=== PATIENT | male | born 1935 | race Caucasian/White ===

== ENCOUNTER 2022-09-03 13:30 | Outpatient (RCR) | payer OTHER, SELFPAY ==
--- NOTE | 2022-05-05 16:23 | ST.OP.ACL ---
Visit Care Team Role Provider Type Latrell Acosta MD Attending Provider Non-Staff Family Provider Primary Care Provider Referring Provider Specialty: Family Practice Address: [address] [place] [address], [id number] Email: Adult Cognitive Linguistic Evaluation METAL FILER Adult Cognitive Linguistic Eval Start: 05/05/22 15:20 Freq: Status: Active Protocol: Document 05/05/22 15:20 ZS (Rec: 05/05/22 15:33 ZS [id number]) Adult Cognitive Linguistic Evaluation Session Time Visit Start Time 14:30 Visit Stop Time 15:20 Total Visit Minutes 50 Visit Information Visit Number Initial Evaluation Plan of Care Dates 05/05/2022 - 08/21/2022 Insurance Information [place] Referral Referring Provider Dr. Acosta Reason for Referral Speech difficulties post stroke Setting Assessment Location Outpatient Care Visit Type Note Type Initial evaluation Next Note Type Next Note Type Treatment Note Patient Information Identification Type Name Patient History Emmanuel is an 86-year-old male who had a stroke in February 2022 and was referred for speech therapy due to expressive communication deficits. reported Emmanuel was unable to speak immediately following stroke, though did not have difficulty with swallowing or cognition. She added Emmanuel has demonstrated significant improvement each day following stroke and is now able to communicate basic wants and needs, albeit slowly due to articulation errors. Emmanuel reported no word finding difficulty, stating all communication deficits are related to producing/ articulating words. noted difficulty with particular sound combinations, primarily s-blends. Language(s) Spoken in the Home Persian Occupation Status Retired researcher at [employer] Hearing Hearing Level Impaired Vision Vision Status Not Impaired Previous Therapy Previous Speech-Language Therapy Yes History of Therapy In hospital following stroke, provided exercises and support with communication. Subjective Patient Report Emmanuel arrived on time accompanied by his , who was present for the session. Emmanuel reported he often spells words he is having difficulty producing or with slow his rate of speech to articulate the word more precisely. Mental Status Alert,Responsive,Cooperative Assessment Oral Motor Examination Completed Yes Results Structures were symmetrical at rest and in motion. Tongue, lip, and jaw strength and ROM were WNL. Structure and function of oral mechanism appears WNL for the purposes of speech and swallowing. Speech was clear, though articulation was errored. Pt exhibited errors on 80-90% of words produced, though corrected most of these independently by spelling words and then saying them again at a slower rate. Emmanuel and reported this is consistent with communication at home, though improvements are noted every day and even over the course of a day. Informal Assessment Receptive Language Normal Yes Expressive Language Normal Yes: Language normal, articulation is severely impaired Pragmatic Language Normal Yes Speech Normal No Speech Impairment(s) Imprecise articulation Cognition Normal Yes Formal Assessment Results Assessed speech sounds using informal assessments of automatic speech, filling in the blank, and opposites. Pt exhibited difficulty with singing Happy Birthday as well as saying b, w, and q in the alphabet (d said instead of b and articulation errors in w and q). Filling in words and opposites were 100% accurate ( 5/5 trials). The Armas Fristoe Test of Articulation ( GFTA-2) was used as informal assessment tool to assess patterns in articulation errors. No clear patterns emerged and exhibited successful self-correction on 60% of errored productions and he attempted self-correction on 100% of errors. Some errors appear visually similar (e.g. , /m/ for /w/ or /d/ for /b/) while others were more typical fronting errors (e.g., /d/ for /g/). Length of word did not appear to impact production, as soup, super, and superman were all produced accurately and errors were just as likely to appear on longer words as they were on shorter ones. Errors noted on vowel production, though no patterns appeared here either . Pt demonstrated excellent independent use of strategies for improved articulation including spelling words to aid in his production as well as slowing rate of speech and focusing on precise articulation. Additionally, he would use a different word with the same sound to approximate position of sound (e.g., used accurate production of Mendez to aid in production of /w/ in wagon). Recommend speech therapy to increase intelligibility and expressive communication for the purposes of communicating wants and needs, especially in emergency situations. Findings/Results Language Function Within normal limits Cognitive Function Within normal limits Cognitive Communication Deficits Self-awareness of Cognitive- Situational awareness ( Communication Deficits recognition of problem in context;in real time) Prognosis Prognosis Good Based on Cognitive status,Family support,Duration of symptoms/ severity,Time since onset Plan of Care Speech-Language Treatment Yes Frequency 1x per week Duration 45 minutes Patient/Caregiver Education Described results of evaluation,Patient expressed understanding of evaluation, Patient expressed agreement with goals and treatment plans ,Family/caregivers expressed understanding of evaluation, Family/caregivers expressed agreement with goals and treatment plan,Patient requires further education/ training,Family/caregivers require further education/ training Short Term Goals 1. Emmanuel will produce automatic speech with 100% accuracy without requiring revisions across 2 sessions. 2. Emmanuel will perform exercises to increase coordination of articulator and rate of speech for improved intelligibility and communicative capabilities. Maint Mechanic Goals Emmanuel will communicate wants and needs with 100% intelligibility.
--- NOTE | 2022-05-05 16:24 | ST.OPPOC ---
Physical, Occupational & Speech Therapy At [facility] Visit Care Team Role Provider Type Latrell Acosta MD Attending Provider Non-Staff Family Provider Primary Care Provider Referring Provider Address: [address] [place] [address], [id number] Speech Pathology Plan of Care Plan of Care Dates 05/05/2022 - 08/21/[address] Acosta Patient History Emmanuel is an 86-year-old male who had a stroke in February 2022 and was referred for speech therapy due to expressive communication deficits . reported Emmanuel was unable to speak immediately following stroke, though did not have difficulty with swallowing or cognition. She added Emmanuel has demonstrated significant improvement each day following stroke and is now able to communicate basic wants and needs, albeit slowly due to articulation errors. Emmanuel reported no word finding difficulty, stating all communication deficits are related to producing /articulating words. noted difficulty with particular sound combinations, primarily s- blends. Short Term Goals 1. Emmanuel will produce automatic speech with 100% accuracy without requiring revisions across 2 sessions. 2. Emmanuel will perform exercises to increase coordination of articulator and rate of speech for improved intelligibility and communicative capabilities. Tarp Repairer Goals Emmanuel will communicate wants and needs with 100% intelligibility. Comment: Electronically Signed by: OMEGA Arteaga 05/05/22 8217 If you are in agreement with this Plan of Care, please return a signed and dated copy. I have reviewed this Plan of Care and certify that the skilled therapy services above are required to meet the patient?s needs. Physician Signature Date Printed Name and Credentials Clinical Instructor Signature Printed Name and Credentials
--- NOTE | 2022-05-22 14:29 | ST.OPTN ---
Visit Care Team Role Provider Type Latrell Acosta MD Attending Provider Non-Staff Family Provider Primary Care Provider Referring Provider Address: [address] [place] [address], [id number] SWIMMING COACH OR INSTRUCTOR Treatment Note SWIMMING COACH OR INSTRUCTOR Treatment Note Start: 05/22/22 14:22 Freq: Status: Active Protocol: Document 05/22/22 14:22 ZS (Rec: 05/22/22 14:29 ZS [id number]) Speech Pathology Treatment Note Session Time Visit Start Time 13:30 Visit Stop Time 14:20 Total Visit Minutes 50 Visit Information Visit Number 1 Plan of Care Dates 05/05/2022 - 08/21/2022 Insurance Information [facility] Treatment Setting Outpatient Care Visit Type Note Type Treatment Note Next Note Type Next Note Type Treatment Note General Information Patient History Emmanuel is an 86-year-old male who had a stroke in February 2022 and was referred for speech therapy due to expressive communication deficits. reported Emmanuel was unable to speak immediately following stroke, though did not have difficulty with swallowing or cognition. She added Emmanuel has demonstrated significant improvement each day following stroke and is now able to communicate basic wants and needs, albeit slowly due to articulation errors. Emmanuel reported no word finding difficulty, stating all communication deficits are related to producing/ articulating words. noted difficulty with particular sound combinations, primarily s-blends. Subjective Identification Type Name Identification Reconciled With Medical Record Others Present Family Observations/Patient Presentation Emmanuel arrived on time accompanied by his , who was present for the session. reported Emmanuel has had periods of improvement and periods of regression in terms of speech sound production. Chief Complaint(s) Speech Objective Short Term Goals 1. Emmanuel will produce automatic speech with 100% accuracy without requiring revisions across 2 sessions. 2. Emmanuel will perform exercises to increase coordination of articulator and rate of speech for improved intelligibility and communicative capabilities. [facility] Goals Emmanuel will communicate wants and needs with 100% intelligibility. Treatment Activities Provided education regarding speech sound production, speech sounds, and articulators. Practiced segmenting long words into smaller pieces to aid in accurate production. Targeted alveolar and labial sound production in isolation. Assessment Patient Response to Treatment Good Rehab Potential Good Impairments Identified Speech Progress Towards Goals Slow Progress Assessment of Improvement Emmanuel produced words beginning with the correct sound and the name of the letter, but exhibited difficulty in producing the corresponding sound. Accurate production noted with /t/ x2, /s/ x1, and /b/ x1. Unable to produce /m, p, z/ during session today. Family to practice with these sounds at home using a mirror for visual feedback as necessary. Provided education regarding speech sound production, sequencing sounds together, and minimal pairs. Pt and expressed understanding. HEP provided on handout. Reviewed with Patient Goals,Progress Being Made,Home Exercise Program Patient/Caregiver Understanding Excellent Plan Amount of Therapy Recommended 6 Months Frequency of Treatment Once a Week Length of Session 45 Minutes Therapeutic Contents Articulation Training,Client Education,Home Exercise Program,Oral Motor Training Provided Patient/Caregiver Instruction Home Exercise Program,Plan of Care,Questions/Concerns Therapy Recommendations Continue with Current Program
--- NOTE | 2022-05-26 15:24 | ST.OPTN ---
Visit Care Team Role Provider Type Latrell Acosta MD Attending Provider Non-Staff Family Provider Primary Care Provider Referring Provider Address: [address] [place] [address], [id number] SHIP DESIGN TEACHER Treatment Note SHIP DESIGN TEACHER Treatment Note Start: 05/22/22 14:22 Freq: Status: Active Protocol: Document 05/26/22 15:20 ZS (Rec: 05/26/22 15:23 ZS [id number]) Speech Pathology Treatment Note Session Time Visit Start Time 14:30 Visit Stop Time 15:15 Total Visit Minutes 45 Visit Information Visit Number 2 Plan of Care Dates 05/05/2022 - 08/21/2022 Insurance Information [facility] Treatment Setting Outpatient Care Visit Type Note Type Treatment Note Next Note Type Next Note Type Treatment Note General Information Patient History Emmanuel is an 86-year-old male who had a stroke in February 2022 and was referred for speech therapy due to expressive communication deficits. reported Emmanuel was unable to speak immediately following stroke, though did not have difficulty with swallowing or cognition. She added Emmanuel has demonstrated significant improvement each day following stroke and is now able to communicate basic wants and needs, albeit slowly due to articulation errors. Emmanuel reported no word finding difficulty, stating all communication deficits are related to producing/ articulating words. noted difficulty with particular sound combinations, primarily s-blends. Subjective Identification Type Name Identification Reconciled With Medical Record Others Present Family Observations/Patient Presentation Emmanuel arrived on time accompanied by his , who was present for the session. reported Emmanuel has been improving in his ability to chat and put more words together to form short phrases . Chief Complaint(s) Speech Objective Short Term Goals 1. Emmanuel will produce automatic speech with 100% accuracy without requiring revisions across 2 sessions. 2. Emmanuel will perform exercises to increase coordination of articulator and rate of speech for improved intelligibility and communicative capabilities. Detention Goals Emmanuel will communicate wants and needs with 100% intelligibility. Treatment Activities Provided education regarding speech sound production, speech sounds, and articulators. Practiced functional phrases. Targeted alveolar and labial sound production in isolation. Assessment Patient Response to Treatment Good Rehab Potential Good Impairments Identified Speech Progress Towards Goals Slow Progress Assessment of Improvement Emmanuel produced phrases with more accuracy today and was observed to use more appropriate language this session. Functional phrases introduced and Emmanuel produced phrases with high level of accuracy, often missing 1 word , but producing the rest correctly. Family to practice with sounds at home using a mirror for visual feedback as necessary and practice functional phrases. Provided education regarding speech sound production, sequencing sounds together, and minimal pairs. Pt and expressed understanding. HEP provided on handout. Reviewed with Patient Goals,Progress Being Made,Home Exercise Program Patient/Caregiver Understanding Excellent Plan Amount of Therapy Recommended 6 Months Frequency of Treatment Once a Week Length of Session 45 Minutes Therapeutic Contents Articulation Training,Client Education,Home Exercise Program,Oral Motor Training Provided Patient/Caregiver Instruction Home Exercise Program,Plan of Care,Questions/Concerns Therapy Recommendations Continue with Current Program
--- NOTE | 2022-06-02 16:14 | ST.OPTN ---
Visit Care Team Role Provider Type Latrell Acosta MD Attending Provider Non-Staff Family Provider Primary Care Provider Referring Provider Address: [address] [place] [address], [id number] SUBSORTER Treatment Note SUBSORTER Treatment Note Start: 05/22/22 14:22 Freq: Status: Active Protocol: Document 06/02/22 16:12 ZS (Rec: 06/02/22 16:14 ZS [id number]) Speech Pathology Treatment Note Session Time Visit Start Time 15:30 Visit Stop Time 16:10 Total Visit Minutes 40 Visit Information Visit Number 3 Plan of Care Dates 05/05/2022 - 08/21/2022 Insurance Information [facility] Treatment Setting Outpatient Care Visit Type Note Type Treatment Note Next Note Type Next Note Type Treatment Note General Information Patient History Emmanuel is an 86-year-old male who had a stroke in February 2022 and was referred for speech therapy due to expressive communication deficits. reported Emmanuel was unable to speak immediately following stroke, though did not have difficulty with swallowing or cognition. She added Emmnauel has demonstrated significant improvement each day following stroke and is now able to communicate basic wants and needs, albeit slowly due to articulation errors. Emmanuel reported no word finding difficulty, stating all communication deficits are related to producing/ articulating words. noted difficulty with particular sound combinations, primarily s-blends. Subjective Identification Type Name Identification Reconciled With Medical Record Others Present Family Observations/Patient Presentation Emmanuel arrived on time accompanied by his , who was present for the session. reported Emmanuel has been improving in his ability to chat and put more words together to form short phrases . Chief Complaint(s) Speech Objective Short Term Goals 1. Emmanuel will produce automatic speech with 100% accuracy without requiring revisions across 2 sessions. 2. Emmanuel will perform exercises to increase coordination of articulator and rate of speech for improved intelligibility and communicative capabilities. Half-Way Goals Emmanuel will communicate wants and needs with 100% intelligibility. Treatment Activities Provided education regarding speech sound production, speech sounds, and articulators. Practiced functional phrases. Targeted automatic speech and short phrases. Assessment Patient Response to Treatment Good Rehab Potential Good Impairments Identified Speech Progress Towards Goals Slow Progress Assessment of Improvement Emmanuel produced phrases with more accuracy today and was observed to use more appropriate language this session. Functional phrases reviewed and Emmanuel produced phrases with high level of accuracy, often missing 1 word , but producing the rest correctly. Family to practice with words/phrases, automatic speech, and practice functional phrases. Provided education regarding speech sound production, sequencing sounds together, and brain to muscle connection. Pt and expressed understanding. HEP provided on handout. Reviewed with Patient Goals,Progress Being Made,Home Exercise Program Patient/Caregiver Understanding Excellent Plan Amount of Therapy Recommended 6 Months Frequency of Treatment Once a Week Length of Session 45 Minutes Therapeutic Contents Articulation Training,Client Education,Home Exercise Program,Oral Motor Training Provided Patient/Caregiver Instruction Home Exercise Program,Plan of Care,Questions/Concerns Therapy Recommendations Continue with Current Program
--- NOTE | 2022-06-10 17:30 | ST.OPTN ---
Visit Care Team Role Provider Type Latrell Acosta MD Attending Provider Non-Staff Family Provider Primary Care Provider Referring Provider Address: [address] [place] [address], [id number] INDUSTRIAL DESIGN ENGINEER Treatment Note INDUSTRIAL DESIGN ENGINEER Treatment Note Start: 05/22/22 14:22 Freq: Status: Active Protocol: Document 06/10/22 17:31 ZS (Rec: 06/10/22 17:32 ZS [id number]) Speech Pathology Treatment Note Session Time Visit Start Time 16:30 Visit Stop Time 17:15 Total Visit Minutes 45 Visit Information Visit Number 4 Plan of Care Dates 05/05/2022 - 08/21/2022 Insurance Information [facility] Treatment Setting Outpatient Care Visit Type Note Type Treatment Note Next Note Type Next Note Type Treatment Note General Information Patient History Emmanuel is an 86-year-old male who had a stroke in February 2022 and was referred for speech therapy due to expressive communication deficits. reported Emmanuel was unable to speak immediately following stroke, though did not have difficulty with swallowing or cognition. She added Emmanuel has demonstrated significant improvement each day following stroke and is now able to communicate basic wants and needs, albeit slowly due to articulation errors. Emmanuel reported no word finding difficulty, stating all communication deficits are related to producing/ articulating words. noted difficulty with particular sound combinations, primarily s-blends. Subjective Identification Type Name Identification Reconciled With Medical Record Others Present Family Observations/Patient Presentation Emmanuel arrived on time accompanied by his , who was present for the session. reported Emmanuel has been improving in his ability to chat and put more words together to form short phrases . Difficulty with longer phrases reported by and Emmanuel. Chief Complaint(s) Speech Objective Short Term Goals 1. Emmanuel will produce automatic speech with 100% accuracy without requiring revisions across 2 sessions. 2. Emmanuel will perform exercises to increase coordination of articulator and rate of speech for improved intelligibility and communicative capabilities. Skilled Nursing Goals Emmanuel will communicate wants and needs with 100% intelligibility. Treatment Activities Provided education regarding speech sound production, speech sounds, and articulators. Practiced functional phrases and short phrases. Targeted slower rate of speech and use of strategies to improve intelligibility. Discussed strategies to increase independence with HEP. Assessment Patient Response to Treatment Good Rehab Potential Good Impairments Identified Speech Progress Towards Goals Slow Progress Assessment of Improvement Emmanuel produced phrases with more accuracy today and was observed to use more appropriate language this session. As rate of speech increased, clarity and accuracy dropped. Errors often included fronting of /k/ and /g/ or addition of final consonant sounds. Functional phrases reviewed and Emmanuel produced phrases with high level of accuracy, often missing 1 word, but producing the rest correctly. Family to practice with words/phrases, automatic speech, and practice functional phrases with decreased support each time (e .g., written word, complete model, delayed model, no model, etc.). Provided education regarding speech sound production, sequencing sounds together, and brain to muscle connection. Pt and expressed understanding. HEP provided on handout. Reviewed with Patient Goals,Progress Being Made,Home Exercise Program Patient/Caregiver Understanding Excellent Plan Amount of Therapy Recommended 6 Months Frequency of Treatment Once a Week Length of Session 45 Minutes Therapeutic Contents Articulation Training,Client Education,Home Exercise Program,Oral Motor Training Provided Patient/Caregiver Instruction Home Exercise Program,Plan of Care,Questions/Concerns Therapy Recommendations Continue with Current Program
--- NOTE | 2022-06-16 14:57 | ST.OPTN ---
Visit Care Team Role Provider Type Latrell Acosta MD Attending Provider Non-Staff Family Provider Primary Care Provider Referring Provider Address: [address] [place] [address], [id number] APPEALS EXAMINER Treatment Note APPEALS EXAMINER Treatment Note Start: 05/22/22 14:22 Freq: Status: Active Protocol: Document 06/16/22 14:53 ZS (Rec: 06/16/22 14:57 ZS [id number]) Speech Pathology Treatment Note Session Time Visit Start Time 14:30 Visit Stop Time 15:30 Total Visit Minutes 60 Visit Information Visit Number 5 Plan of Care Dates 05/05/2022 - 08/21/2022 Insurance Information [facility] Treatment Setting Outpatient Care Visit Type Note Type Treatment Note Next Note Type Next Note Type Treatment Note General Information Patient History Emmanuel is an 86-year-old male who had a stroke in February 2022 and was referred for speech therapy due to expressive communication deficits. reported Emmanuel was unable to speak immediately following stroke, though did not have difficulty with swallowing or cognition. She added Emmanuel has demonstrated significant improvement each day following stroke and is now able to communicate basic wants and needs, albeit slowly due to articulation errors. Emmanuel reported no word finding difficulty, stating all communication deficits are related to producing/ articulating words. noted difficulty with particular sound combinations, primarily s-blends. Subjective Identification Type Name Identification Reconciled With Medical Record Others Present Family Observations/Patient Presentation Emmanuel arrived on time accompanied by his , who was present for the session. reported Emmanuel has been improving in his ability to chat and put more words together to form short phrases . Difficulty with longer phrases reported by and Emmanuel. Chief Complaint(s) Speech Objective Short Term Goals 1. Emmanuel will produce automatic speech with 100% accuracy without requiring revisions across 2 sessions. 2. Emmanuel will perform exercises to increase coordination of articulator and rate of speech for improved intelligibility and communicative capabilities. Care Home Goals Emmanuel will communicate wants and needs with 100% intelligibility. Treatment Activities Provided education regarding speech sound production, speech sounds, and articulators. Practiced conversational speech and sentences. Targeted slower rate of speech, easy onset, and use of strategies to improve intelligibility. Discussed strategies to increase independence with HEP . Discussed POC and prognosis. Assessment Patient Response to Treatment Good Rehab Potential Good Impairments Identified Speech Progress Towards Goals Slow Progress Assessment of Improvement Emmanuel produced sentences with high accuracy today and was observed to use more appropriate language during conversation this session. As rate of speech increased, clarity and accuracy dropped. Errors often included fronting of /k/ and /g/ or addition of final consonant sounds. Emmanuel reported while phrases are going well, he has difficulty stringing sentences together for conversation. Practiced at conversational level and pt observed to communicate with high intelligibility and few errors when rate of speech was slow. As rate of speech increased, pt re-attempted errored words rapidly and often without success until rate of speech slowed. Pt benefitted from easy onset and will continue this practice at home for improved intelligibility in conversation. Provided education regarding speech sound production, sequencing sounds together, and brain to muscle connection. Pt and expressed understanding. Reviewed with Patient Goals,Progress Being Made,Home Exercise Program Patient/Caregiver Understanding Excellent Plan Amount of Therapy Recommended 6 Months Frequency of Treatment Once a Week Length of Session 45 Minutes Therapeutic Contents Articulation Training,Client Education,Home Exercise Program,Oral Motor Training Provided Patient/Caregiver Instruction Home Exercise Program,Plan of Care,Questions/Concerns Therapy Recommendations Continue with Current Program
--- NOTE | 2022-06-23 14:24 | ST.OPTN ---
Visit Care Team Role Provider Type Latrell Acosta MD Attending Provider Non-Staff Family Provider Primary Care Provider Referring Provider Address: [address] [place] [address], [id number] DYE BLENDER Treatment Note DYE BLENDER Treatment Note Start: 05/22/22 14:22 Freq: Status: Active Protocol: Document 06/23/22 14:20 ZS (Rec: 06/23/22 14:24 ZS [id number]) Speech Pathology Treatment Note Session Time Visit Start Time 13:30 Visit Stop Time 14:15 Total Visit Minutes 45 Visit Information Visit Number 6 Plan of Care Dates 05/05/2022 - 08/21/2022 Insurance Information [facility] Treatment Setting Outpatient Care Visit Type Note Type Treatment Note Next Note Type Next Note Type Treatment Note General Information Patient History Emmanuel is an 86-year-old male who had a stroke in February 2022 and was referred for speech therapy due to expressive communication deficits. reported Emmanuel was unable to speak immediately following stroke, though did not have difficulty with swallowing or cognition. She added Emmanuel has demonstrated significant improvement each day following stroke and is now able to communicate basic wants and needs, albeit slowly due to articulation errors. Emmanuel reported no word finding difficulty, stating all communication deficits are related to producing/ articulating words. noted difficulty with particular sound combinations, primarily s-blends. Subjective Identification Type Name Identification Reconciled With Medical Record Others Present Family Observations/Patient Presentation Emmanuel arrived on time accompanied by his , who was present for the session. reported Emmanuel has been improving in his ability to chat and put more words together to form short phrases . Difficulty with composing sentences during conversation reported by and Emmanuel. Chief Complaint(s) Speech Objective Short Term Goals 1. Emmanuel will produce automatic speech with 100% accuracy without requiring revisions across 2 sessions. 2. Emmanuel will perform exercises to increase coordination of articulator and rate of speech for improved intelligibility and communicative capabilities. Long-Term Goals Emmanuel will communicate wants and needs with 100% intelligibility. Treatment Activities Provided education regarding speech sound production, speech sounds, and articulators. Practiced conversational speech and sentences. Targeted slower rate of speech, easy onset, and use of strategies to improve intelligibility. Discussed strategies to increase independence with HEP . Discussed POC and prognosis. Assessment Patient Response to Treatment Good Rehab Potential Good Impairments Identified Speech Progress Towards Goals Slow Progress Assessment of Improvement Emmanuel produced sentences with high accuracy today and was observed to use more appropriate language during conversation this session. As rate of speech increased, clarity and accuracy dropped. Noted word order errors (i.e., for to me instead of for me to), part-word errors (e.g ., polititary instead of political and self instead of myself). Additionally, stuttering-like behaviors observed with part and whole word repetitions as well as closing of eyes while speaking , which may be a secondary behavior related to speech errors. Emmanuel reported while phrases are going well, he has difficulty stringing sentences together for conversation. Practiced at conversational level and pt observed to communicate with high intelligibility and few errors when rate of speech was slow. As rate of speech increased, pt re-attempted errored words rapidly and often without success until rate of speech slowed. Pt benefitted from easy onset and will continue this practice at home for improved intelligibility in conversation. Provided education regarding speech sound production, sequencing sounds together, and brain to muscle connection. Pt and expressed understanding. Transitioning to EOW appointments due to independence with HEP and long drive for therapy appointments. Reviewed with Patient Goals,Progress Being Made,Home Exercise Program Patient/Caregiver Understanding Excellent Plan Amount of Therapy Recommended 6 Months Comment EOW Length of Session 45 Minutes Therapeutic Contents Articulation Training,Client Education,Home Exercise Program,Oral Motor Training Provided Patient/Caregiver Instruction Home Exercise Program,Plan of Care,Questions/Concerns Therapy Recommendations Continue with Current Program, Decrease Frequency of Rehabilitation Comment EOW appointments
--- NOTE | 2022-07-06 15:12 | ST.OPTN ---
Visit Care Team Role Provider Type Latrell Acosta MD Attending Provider Non-Staff Family Provider Primary Care Provider Referring Provider Address: [address] [place] [address], [id number] MELT HELPER Treatment Note MELT HELPER Treatment Note Start: 05/22/22 14:22 Freq: Status: Active Protocol: Document 07/06/22 15:08 ZS (Rec: 07/06/22 15:12 ZS [id number]) Speech Pathology Treatment Note Session Time Visit Start Time 14:30 Visit Stop Time 15:00 Total Visit Minutes 30 Visit Information Visit Number 7 Plan of Care Dates 05/05/2022 - 08/21/2022 Insurance Information [facility] Treatment Setting Outpatient Care Visit Type Note Type Treatment Note Next Note Type Next Note Type Treatment Note General Information Patient History Emmanuel is an 86-year-old male who had a stroke in February 2022 and was referred for speech therapy due to expressive communication deficits. reported Emmanuel was unable to speak immediately following stroke, though did not have difficulty with swallowing or cognition. She added Emmanuel has demonstrated significant improvement each day following stroke and is now able to communicate basic wants and needs, albeit slowly due to articulation errors. Emmanuel reported no word finding difficulty, stating all communication deficits are related to producing/ articulating words. noted difficulty with particular sound combinations, primarily s-blends. Subjective Identification Type Name Identification Reconciled With Medical Record Others Present Family Observations/Patient Presentation Emmanuel arrived on time accompanied by his , who was present for the session. reported Emmanuel has been improving in his ability to chat and put more words together to form short phrases . Difficulty with composing sentences during conversation reported by Emmanuel, though stated this has much improved recently. Chief Complaint(s) Speech Objective Short Term Goals 1. Emmanuel will produce automatic speech with 100% accuracy without requiring revisions across 2 sessions. 2. Emmanuel will perform exercises to increase coordination of articulator and rate of speech for improved intelligibility and communicative capabilities. Pharmacovigilance Specialist Goals Emmanuel will communicate wants and needs with 100% intelligibility. Treatment Activities Provided education regarding speech sound production, speech sounds, and articulators. Practiced conversational speech and sentences. Targeted slower rate of speech, easy onset, and use of strategies to improve intelligibility. Discussed strategies to increase independence with HEP . Discussed POC and prognosis. Will follow-up in 1 month. Assessment Patient Response to Treatment Good Rehab Potential Good Impairments Identified Speech Progress Towards Goals Slow Progress Assessment of Improvement Emmanuel conversed with high accuracy today and was observed to use more appropriate language and exhibited reduced stumbling on words during conversation this session. Rate of speech was consistent and Emmanuel maintained clarity and accuracy through conversation. Additionally, reduced stuttering-like behaviors observed with part and whole word repetitions as well as closing of eyes while speaking . Emmanuel reported continued difficulty stringing sentences together for conversation, though stated this has improved. Practiced at conversational level and pt observed to communicate with high intelligibility and few errors. Provided education regarding speech sound production, sequencing sounds together, and brain to muscle connection. Pt and expressed understanding. Transitioning to once a month appointments due to independence with HEP and long drive for therapy appointments. Reviewed with Patient Goals,Progress Being Made,Home Exercise Program Patient/Caregiver Understanding Excellent Plan Amount of Therapy Recommended 6 Months Comment Once a month Length of Session 45 Minutes Therapeutic Contents Articulation Training,Client Education,Home Exercise Program,Oral Motor Training Provided Patient/Caregiver Instruction Home Exercise Program,Plan of Care,Questions/Concerns Therapy Recommendations Continue with Current Program, Decrease Frequency of Rehabilitation Comment EOW appointments
--- NOTE | 2022-08-03 14:23 | ST.OPTN ---
Visit Care Team Role Provider Type Latrell Acosta MD Attending Provider Non-Staff Family Provider Primary Care Provider Referring Provider Address: [address] [place] [address], [id number] TANK SHOP SUPERVISOR Treatment Note TANK SHOP SUPERVISOR Treatment Note Start: 05/22/22 14:22 Freq: Status: Active Protocol: Document 08/03/22 14:17 ZS (Rec: 08/03/22 14:23 ZS [id number]) Speech Pathology Treatment Note Session Time Visit Start Time 13:30 Visit Stop Time 14:00 Total Visit Minutes 30 Visit Information Visit Number 8 Plan of Care Dates 08/03/2022 - 09/20/2022 Insurance Information [facility] Treatment Setting Outpatient Care Visit Type Note Type Progress Note Next Note Type Next Note Type Discharge Summary General Information Patient History Emmanuel is an 86-year-old male who had a stroke in February 2022 and was referred for speech therapy due to expressive communication deficits. reported Emmanuel was unable to speak immediately following stroke, though did not have difficulty with swallowing or cognition. She added Emmanuel has demonstrated significant improvement each day following stroke and is now able to communicate basic wants and needs, albeit slowly due to articulation errors. Emmanuel reported no word finding difficulty, stating all communication deficits are related to producing/ articulating words. noted difficulty with particular sound combinations, primarily s-blends. Subjective Identification Type Name Identification Reconciled With Medical Record Others Present Family Observations/Patient Presentation Emmanuel arrived on time accompanied by his , who was present for the session. reported Emmanuel has been improving in his ability to chat and put more words together to form short phrases . Continued difficulty with composing sentences during conversation reported by Emmanuel , though stated this has much improved recently. Chief Complaint(s) Speech Objective Short Term Goals 1. Emmanuel will produce automatic speech with 100% accuracy without requiring revisions across 2 sessions. 2. Emmanuel will perform exercises to increase coordination of articulator and rate of speech for improved intelligibility and communicative capabilities. Geography Instructor Goals Emmanuel will communicate wants and needs with 100% intelligibility. Treatment Activities Provided education regarding post-stroke recovery. Practiced conversational speech and discussed summarizing articles after reading them aloud as part of home practice. Targeted slower rate of speech, easy onset, and use of strategies to improve intelligibility. Discussed POC and prognosis. Will follow-up in 1 month for final appointment prior to discharge. Assessment Patient Response to Treatment Excellent Rehab Potential Good Impairments Identified Speech Progress Towards Goals Excellent Progress Assessment of Improvement Emmanuel conversed with high accuracy today and was observed to use more appropriate language and exhibited reduced stumbling on words during conversation this session. Emmanuel took approx. 1-2 tries to revise an errored word today compared to 3-4 attempts in previous sessions. Additionally, errors were less severe, often impacting only one sound in a word rather than multiple, as seen in previous sessions. Rate of speech was consistent and Emmanuel maintained clarity and accuracy through conversation. Additionally, reduced stuttering-like behaviors observed. Emmanuel reported continued difficulty stringing sentences together for conversation, though stated this has improved. Practiced at conversational level and pt observed to communicate with high intelligibility and few errors . Provided education regarding post-stroke spontaneous recovery period. Pt and expressed understanding. Will follow-up in one month to ensure independence in HEP and discharge following that appointment. Reviewed with Patient Goals,Progress Being Made,Home Exercise Program Patient/Caregiver Understanding Excellent Plan Amount of Therapy Recommended 6 Months Comment Once a month Length of Session 45 Minutes Therapeutic Contents Articulation Training,Client Education,Home Exercise Program,Oral Motor Training Provided Patient/Caregiver Instruction Home Exercise Program,Plan of Care,Questions/Concerns Therapy Recommendations Continue with Current Program Comment Follow-up in 1 month
--- NOTE | 2022-08-03 14:24 | ST.OPPOC ---
Physical, Occupational & Speech Therapy At [facility] Visit Care Team Role Provider Type Latrell Acosta MD Attending Provider Non-Staff Family Provider Primary Care Provider Referring Provider Address: [address] [place] [address], [id number] Speech Pathology Plan of Care Plan of Care Dates 08/03/2022 - 09/20/[address] Acosta Patient History Emmanuel is an 86-year-old male who had a stroke in February 2022 and was referred for speech therapy due to expressive communication deficits . reported Emmanuel was unable to speak immediately following stroke, though did not have difficulty with swallowing or cognition. She added Emmanuel has demonstrated significant improvement each day following stroke and is now able to communicate basic wants and needs, albeit slowly due to articulation errors. Emmanuel reported no word finding difficulty, stating all communication deficits are related to producing /articulating words. noted difficulty with particular sound combinations, primarily s- blends. Impairments Identified Speech Progress Towards Goals Excellent Progress Self-awareness of Cognitive- Situational awareness (re Communication Deficits Short Term Goals 1. Emmanuel will produce automatic speech with 100% accuracy without requiring revisions across 2 sessions. 2. Emmanuel will perform exercises to increase coordination of articulator and rate of speech for improved intelligibility and communicative capabilities. Reports Analysis Manager Goals Emmanuel will communicate wants and needs with 100% intelligibility. Comment: Electronically Signed by: OMEGA Arteaga 08/03/22 [id number] If you are in agreement with this Plan of Care, please return a signed and dated copy. I have reviewed this Plan of Care and certify that the skilled therapy services above are required to meet the patient?s needs. Physician Signature Date Printed Name and Credentials Clinical Instructor Signature Printed Name and Credentials
--- NOTE | 2022-09-03 13:53 | ST.OPDS ---
Visit Care Team Role Provider Type Latrell Acosta MD Attending Provider Non-Staff Family Provider Primary Care Provider Referring Provider Address: [address] [place] [address], [phone] MISSION MANAGER Treatment Note MISSION MANAGER Treatment Note Start: 05/22/22 14:22 Freq: Status: Active Protocol: Document 09/03/22 13:47 ZS (Rec: 09/03/22 13:53 ZS [id number]) Speech Pathology Treatment Note Session Time Visit Start Time 13:30 Visit Stop Time 13:47 Total Visit Minutes 17 Visit Information Visit Number 9 Plan of Care Dates 08/03/2022 - 09/20/2022 Insurance Information [facility] Treatment Setting Outpatient Care Visit Type Note Type Discharge Summary General Information Patient History Emmanuel is an 86-year-old male who had a stroke in February 2022 and was referred for speech therapy due to expressive communication deficits. reported Emmanuel was unable to speak immediately following stroke, though did not have difficulty with swallowing or cognition. She added Emmanuel has demonstrated significant improvement each day following stroke and is now able to communicate basic wants and needs, albeit slowly due to articulation errors. Emmanuel reported no word finding difficulty, stating all communication deficits are related to producing/ articulating words. noted difficulty with particular sound combinations, primarily s-blends. Subjective Identification Type Name Identification Reconciled With Medical Record Others Present Family Observations/Patient Presentation Emmanuel arrived on time accompanied by his , who was present for the session. reported Emmanuel has been improving in his ability to chat and put more words together to form short phrases . Reading has improved and Emmanuel stated he can resolve most word errors with a slower rate of speech. Chief Complaint(s) Speech Objective Short Term Goals 1. Emmanuel will produce automatic speech with 100% accuracy without requiring revisions across 2 sessions. - Goal met. Emmanuel produces automatic speech with 100% accuracy. In spontaneous conversation, he demonstrates about 80-90% accuracy, depending on rate of speech. 2. Emmanuel will perform exercises to increase coordination of articulator and rate of speech for improved intelligibility and communicative capabilities. - Goal met. Emmanuel is independent with HEP and has demonstrated improvement in each session indicating comliance with HEP. Subacute Nurse Goals Emmanuel will communicate wants and needs with 100% intelligibility. Treatment Activities Provided education regarding post-stroke recovery. Practiced conversational speech and discussed summarizing articles after reading them aloud as part of home practice. Discharging from speech therapy as Emmanuel has met all goals and demonstrated consistent progress over several sessions and independence in HEP. Assessment Patient Response to Treatment Excellent Rehab Potential Good Impairments Identified Speech Progress Towards Goals Excellent Progress Assessment of Improvement Emmanuel conversed with high accuracy today and was observed to use more appropriate language and exhibited reduced stumbling on words during conversation this session. Emmanuel took approx. 1-2 tries to revise an errored word today compared to 3-4 attempts in previous sessions. Additionally, errors were less severe, often impacting only one sound in a word rather than multiple, as seen in previous sessions. Rate of speech was consistent and Emmanuel maintained clarity and accuracy through conversation. Additionally, no stuttering-like behaviors observed. Pt reported improvement in conversation, though limited opportunities for conversation at home given they do not have visitors and only interact with health care providers outside of home . Practiced at conversational level and pt observed to communicate with high intelligibility and few errors . Provided education regarding post-stroke spontaneous recovery period. Pt and expressed understanding. Discharging from speech therapy as Emmanuel has met all goals and demonstrated consistent progress over several sessions and independence in HEP. Reviewed with Patient Goals,Progress Being Made,Home Exercise Program Patient/Caregiver Understanding Excellent Plan Amount of Therapy Recommended 6 Months Comment Once a month Length of Session 45 Minutes Therapeutic Contents Articulation Training,Client Education,Home Exercise Program,Oral Motor Training Provided Patient/Caregiver Instruction Home Exercise Program,Plan of Care,Questions/Concerns Therapy Recommendations Continue with Current Program Comment Follow-up in 1 month
== END 2022-09-03 14:28 ==
LOC: SP 13:30
PROVIDERS: Family Provider Family Medicine; PCP Family Medicine; Referring Provider Family Medicine; Visit Provider Family Medicine
DX: I63.412 Cerebral infarction due to embolism of left middle cerebral artery (principal)
CPT/HCPCS: 92507; 92523

== ENCOUNTER 2024-09-06 13:45 | Outpatient (RCR) | payer OTHER, SELFPAY ==
--- NOTE | 2024-07-04 15:50 | PT.OIE ---
Current Diagnoses Stiffness of right shoulder, not elsewhere classified (07/04/24) Stiffness of other specified joint, not elsewhere classified (07/04/24) Other spondylosis, cervical region (07/04/24) Cervical disc disorder, unspecified, unspecified cervical region (07/04/24) Cervicalgia (07/04/24) Unsteadiness on feet (07/04/24) Other abnormalities of gait and mobility (07/04/24) Weakness (07/04/24) Visit Care Team Role Provider Type Latrell Acosta MD Attending Provider Non-Staff Family Provider Primary Care Provider Referring Provider Specialty: Family Practice Address: [address] [place] [address], [facility] Email: Physical Therapy Initial Evaluation PT-OP-A Visit Information Start: 07/03/24 16:16 Freq: Status: Active Protocol: Document 07/04/24 13:02 NM (Rec: 07/04/24 14:03 NM [id number]) Out-Patient Physical Therapy Visit Information Visit Information Visit Type Initial Evaluation Visit Start Time 13:03 Visit Stop Time 13:58 Visit Number 06/07 Evaluation Information Evaluation Date 07/04/24 Precautions Precautions Hx stroke c/ R side affected, high blood pressure, osteoporosis, active cancer PT-OP-B Current Condition Start: 07/03/24 16:16 Freq: Status: Active Protocol: Document 07/04/24 13:02 NM (Rec: 07/04/24 14:03 NM [id number]) Current Condition History of Current Condition Onset Date summer/fall 2023 Current Complaints pain with rotation, challenging to drive tractor History of Current Condition Pt presents with cervical spine pain. Has been present since at least March 2024, but reports that pt has had pain since last on tractor in summer/fall. Pain is turning his head R. He had a stroke 2 years ago. Reports difficulty with speaking following his CVA. Pt has had imaging, revealing osteoarthritis. Pt reports that something feels like it goes out of joint when turning his head. Pt's helped provide pt history. 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 Pt reports that he does not have numbness/ tingling into his hands. He did fall 3 years ago, but broke his pelvis; landed on his back, life flighted to [facility]. Has osteoporosis. Denies any more recent falls. Reports that balance is poor. Pt currently has prostate cancer, has had for 14 years; currently on a hormone treatment. Treatment Goals Patient/Caregiver Goals improve looking to R for driving tractor, posture Current Functional Impairments (Reported) Functional Limitations- Other driving tractor or car PT-OP-C Subjective Start: 07/03/24 16:16 Freq: Status: Active Protocol: Document 07/04/24 13:02 NM (Rec: 07/04/24 14:03 NM [id number]) OP-PT Subjective Patient Comments Patient Comments pt consents to participate in PT evaluation Patient Questionnaires Neck Disability Index NDI Score 6.7% OP-PT Pain Assessment Location cervical spine Pain Location Details R sided, midline spine Intensity 4 Scale Used Numeric (0 - 10) Description Aching,Dull Description- Other clicking Frequency Frequent Radiating Location to neck Variations/Patterns none Other Pain Aggravating Factors turning head R Pain Alleviating Factors None Other Pain Alleviating Factors not turning his head PT-OP-F Manual Assessment Start: 07/03/24 16:16 Freq: Status: Active Protocol: Document 07/04/24 13:02 NM (Rec: 07/04/24 14:03 NM [id number]) Manual Assessments Soft Tissue Assessment Soft Tissue Mobility Assessment increased tightness and restrictions of R sided paraspinals and periscapulars tightness and restriction of B pecs, R>L Joint Mobility Assessment Joint Mobility Assessment Hypomobility with lateral glides of cervical spine, hypomobility with PA mobility in supine audible crepitus and clunk with R rotation AROM, none with PROM especially with flexion empty end feel R scapula is more elevated, tipped, protracted; L retracted Other Manual Assessments Other Manual Assessments cranial nerves: I decreased ( unable to smell), II/III/IV/ intact, VII intact, XI intact , XII intact PT-OP-G Mobility & Gait Start: 07/03/24 16:16 Freq: Status: Active Protocol: Document 07/04/24 13:02 NM (Rec: 07/04/24 16:17 NM [id number]) OP Gait Assessment Gait Gait Assistance Required: Independent Distance (Feet) 150 Assistive Devices Assistive Device None Gait Deviations General Gait Pattern Antalgic,Flexed Trunk Comments Gait Comments Decreased trunk rotation, antalgic gait with slight limp , increased lateral translation, forward trunk flexed posture PT-OP-J Posture/Palpation/Skin Start: 07/03/24 16:16 Freq: Status: Active Protocol: Document 07/04/24 13:02 NM (Rec: 07/04/24 14:03 NM [id number]) Posture Evaluation Position Standing Head/C-Spine Posture Forward Head T-Spine Posture Increased Kyphosis Shoulder Posture (L) Rounded,(R) Rounded,(L) Forward,(R) Forward Scapula Posture (R) Protracted,(R) Retracted,( R) Elevated,(R) Winged,(R) Tipped Arm Posture (L) Internally Rotated,(R) Internally Rotated Pelvis Posture Anteriorly Tilted Weight Distribution Balanced Hip Posture (L) Externally Rotated,(R) Externally Rotated Palpation Assessment Location cervical spine Palpation Details tenderness along R side of spine, no tenderness along midline; upper cervical more limited than lower cervical spine tightness along R paraspinals. abnormal scapular positioning PT-OP-K Range of Motion Start: 07/03/24 16:16 Freq: Status: Active Protocol: Document 07/04/24 13:02 NM (Rec: 07/04/24 14:03 NM [id number]) Cervical Spine Range of Motion Cervical Spine Active Degrees Flexion 45 Extension 30 Rotation Left 55 Rotation Right 25 Lateral Flexion Left 20 Lateral Flexion Right 15 Comments pain with R LF, R rot decreased thoracic mobility Shoulder Goniometric Range of Motion Shoulder ROM Limitations Comments observable limitations on R side PT-OP-L Special Tests Start: 07/03/24 16:16 Freq: Status: Active Protocol: Document 07/04/24 13:02 NM (Rec: 07/04/24 14:03 NM [id number]) Special Tests Cervical Spine Special Tests Passive Neck Flexion Test Results + Comments better rot c/ flex but still limited Vertebral artery screen Test Results CN limited, no PN changes Transverse Ligament Test Results - Alar Ligament Test Results - Traction Test Results - Comments inc R sided pain, no radiation PT-OP-M Strength Start: 07/03/24 16:16 Freq: Status: Active Protocol: Document 07/04/24 13:02 NM (Rec: 07/04/24 14:03 NM [id number]) Cervical Spine Strength Cervical Spine Manual Muscle Testing Flexion (C1-2) 3+ Fair+ Extension 3+ Fair+ Rotation Left 3+ Fair+ Rotation Right 3+ Fair+ Lateral Flexion Left (C3) 3+ Fair+ Lateral Flexion Right (C3) 3+ Fair+ Comments no pain with resisted testing Shoulder Strength Shoulder Manual Muscle Testing Right Flexion 4- Good- Extension 4- Good- Abduction (C5) 4- Good- Adduction 4- Good- Left Flexion 4- Good- Extension 4- Good- External Rotation 4- Good- Internal Rotation 4- Good- Elbow/Forearm Strength Elbow and Forearm Manual Muscle Testing Right Flexion (C6) 4- Good- Extension (C7) 4- Good- Left Flexion (C6) 4- Good- Extension (C7) 4- Good- Wrist Strength Wrist Manual Muscle Testing Right Flexion (C7) 4- Good- Extension (C6) 4- Good- Left Flexion (C7) 4- Good- Extension (C6) 4- Good- PT-OP-Q Treatments Start: 07/03/24 16:16 Freq: Status: Active Protocol: Document 07/04/24 13:02 NM (Rec: 07/04/24 14:03 NM [id number]) Therapeutic Exercises Supine Exercises pec stretch Supine Exercise Name 1. T, 2. hands behind head, 3. arms above head Side bilateral Equipment Used pillow under head Reps/Minutes 60 ea Comments cueing for set up and carryover; added to HEP PT-OP-T Assessment and Plan Start: 07/03/24 16:16 Freq: Status: Active Protocol: Document 07/04/24 13:02 NM (Rec: 07/04/24 14:03 NM [id number]) Physical Therapy Assessment Rehab Potential Rehabilitation Potential Good Evaluation Complexity Number of Personal Factors/Comorbidities 3 or More Number of Body Systems Impaired 4 or More Clinical Presentation at Evaluation Evolving Impairments Impairments Activity Tolerance,Balance, Edema,Functional Activities, Functional Mobility,Gait, Integument,Pain,Posture,ROM, Sensation,Soft Tissue Mobility ,Strength,Tone,Transfers, Vestibular Other Concerns Age Related Concerns PMH: allergies, blood pressure , hearing problems, heart disease, kidney disease, neck pain, osteoporosis, shortness of breath, hx stroke c/ R sided weakness Pt has audible clunk with R rotation Barriers to Rehabilitation Pt is currently on medication that reduced bone density and has been taking the medications for several years due to active cancer that further reduces bone density, currently has osteoporosis. Pt also has a hx of a CVA. Hx of both conditions may restrict rehab outcomes due to fracture risk and increased risk of CVA Goals Three Impairment postural restrictions, osteoporosis limiting trunk/ neck ROM Short Term Goal (STG) Pt will be educated on body mechanics and safety during exercise due to osteoporosis STG Duration 08/04/24 Halfway Goal (LTG) Pt will improve tragus-wall measurement by at least 2 cm in order to demos improved spinal posture to offload cervical spine LTG Duration 09/01/24 Two Impairment painful limitations in cervical spine ROM, especially R rotation Director Content Marketing Goal (LTG) If appropriate, pt will improve R cervical spine rotation to at least 45 deg in order to improve visual scanning while driving on his tractor LTG Duration 09/01/24 One Impairment not performing HEP Director [employer] Marketing Goal (LTG) Pt will report compliance with HEP at least 2x/wk in order to maximize progression with PT and transition to maintenance upon discharge from PT LTG Duration 09/01/24 Assessment Summary Assessment Pt is an 88 y.o. presenting with R sided neck pain consistent with dx. Pt has limitations in global cervical spine ROM, especially into lateral flexion and R rotation . Pain present with R rotation ; pt is tender to palpation along R side of cervical spine . He has significant soft tissue restrictions of his R cervicothoracic, chest, and periscapular muscles, which restrict not only R shoulder ROM and scapular position, but also cervical spine muscle length. Further restricted by postural deviations and restrictions in thoracic spine mobility. Pt has PMH of osteoporosis, active prostate cancer, and CVA with hx of R sided weakness. Currently has speech/recall impairments secondary to CVA. PT educated pt on exam findings and plan of care. Pt would benefit from skilled PT for progressive flexibility, strengthening, and postural education for improved activity tolerance and quality of life. Physical Therapy Plan Frequency and Duration Frequency of Treatment 1-2x/wk Duration of treatment (weeks) 8 Plan of Care Start Date 07/04/24 Plan of Care End Date 09/01/24 Therapeutic Interventions Therapeutic Interventions Canalithic Repositioning, Coordination Training,Gait Training,Home Exercise Program ,Joint Mobilizations,Manual Therapy,Neuromuscular Re- education,Orthotic/Prosthetic Management,Patient/Caregiver Education,Self-Care/Home Management,Sensory Integration ,Soft Tissue Mobilization, Taping,Therapeutic Activities, Therapeutic Exercises, Vestibular Rehabilitation Other Therapeutic Interventions grade I-II joint mobilizations only d/t osteoporosis no modalities d/t hx of cancer Next Visit Focus/Plan Next Note Type Treatment Note Next Visit Plan precautions: hx CVA, osteoporosis, high blood pressure, active cancer cont [place] screen, sensation, tragus-wall; review HEP education on osteoporosis, body mechanics, safety cervical retraction, pec stretch, chest opening, periscapular strengthening, improve position of R scapula, progress to rows/low rows with bands etc, wall posture, seated TS mobility manual tx to cervical spine, scapula
--- NOTE | 2024-07-11 12:58 | PT.OTN ---
Current Diagnoses Stiffness of right shoulder, not elsewhere classified (07/11/24) Stiffness of other specified joint, not elsewhere classified (07/11/24) Other spondylosis, cervical region (07/11/24) Cervical disc disorder, unspecified, unspecified cervical region (07/11/24) Cervicalgia (07/11/24) Unsteadiness on feet (07/11/24) Other abnormalities of gait and mobility (07/11/24) Weakness (07/11/24) Physical Therapy Treatment Note PT-OP-A Visit Information Start: 07/03/24 16:16 Freq: Status: Active Protocol: Document 07/11/24 11:34 NM (Rec: 07/11/24 12:23 NM [id number]) Out-Patient Physical Therapy Visit Information Visit Information Visit Type Treatment Note Visit Note Pili, present part of session Visit Start Time 11:34 Visit Stop Time 12:15 Visit Number 07/08 Evaluation Information Evaluation Date 07/04/24 Precautions Precautions Hx stroke c/ R side affected, high blood pressure, osteoporosis, active cancer PT-OP-B Current Condition Start: 07/03/24 16:16 Freq: Status: Active Protocol: Document 07/04/24 13:02 NM (Rec: 07/04/24 14:03 NM [id number]) Current Condition History of Current Condition Onset Date summer/fall 2023 Current Complaints pain with rotation, challenging to drive tractor History of Current Condition Pt presents with cervical spine pain. Has been present since at least March 2024, but reports that pt has had pain since last on tractor in summer/fall. Pain is turning his head R. He had a stroke 2 years ago. Reports difficulty with speaking following his CVA. Pt has had imaging, revealing osteoarthritis. Pt reports that something feels like it goes out of joint when turning his head. Pt's helped provide pt history. 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 Pt reports that he does not have numbness/ tingling into his hands. He did fall 3 years ago, but broke his pelvis; landed on his back, life flighted to [facility]. Has osteoporosis. Denies any more recent falls. Reports that balance is poor. Pt currently has prostate cancer, has had for 14 years; currently on a hormone treatment. Treatment Goals Patient/Caregiver Goals improve looking to R for driving tractor, posture Current Functional Impairments (Reported) Functional Limitations- Other driving tractor or car PT-OP-C Subjective Start: 07/03/24 16:16 Freq: Status: Active Protocol: Document 07/11/24 11:34 NM (Rec: 07/11/24 12:23 NM [id number]) OP-PT Subjective Patient Comments Patient Comments Pt's also present in session, reports that his balance is worsening, legs almost giving out. Pt reports that he is focusing on his posture, reports that helps his neck hurt less and can turn head further. Has been doing exercises on floor, reports hard to put head down. Pt reports that his L knee is bothering him, swelling; reports affecting balance, no known DARIUS. PT-OP-F Manual Assessment Start: 07/03/24 16:16 Freq: Status: Active Protocol: Document 07/04/24 13:02 NM (Rec: 07/04/24 14:03 NM [id number]) Manual Assessments Soft Tissue Assessment Soft Tissue Mobility Assessment increased tightness and restrictions of R sided paraspinals and periscapulars tightness and restriction of B pecs, R>L Joint Mobility Assessment Joint Mobility Assessment Hypomobility with lateral glides of cervical spine, hypomobility with PA mobility in supine audible crepitus and clunk with R rotation AROM, none with PROM especially with flexion empty end feel R scapula is more elevated, tipped, protracted; L retracted Other Manual Assessments Other Manual Assessments cranial nerves: I decreased ( unable to smell), II/III/IV/ intact, VII intact, XI intact , XII intact PT-OP-G Mobility & Gait Start: 07/03/24 16:16 Freq: Status: Active Protocol: Document 07/04/24 13:02 NM (Rec: 07/04/24 16:17 NM [id number]) OP Gait Assessment Gait Gait Assistance Required: Independent Distance (Feet) 150 Assistive Devices Assistive Device None Gait Deviations General Gait Pattern Antalgic,Flexed Trunk Comments Gait Comments Decreased trunk rotation, antalgic gait with slight limp , increased lateral translation, forward trunk flexed posture PT-OP-J Posture/Palpation/Skin Start: 07/03/24 16:16 Freq: Status: Active Protocol: Document 07/04/24 13:02 NM (Rec: 07/04/24 14:03 NM [id number]) Posture Evaluation Position Standing Head/C-Spine Posture Forward Head T-Spine Posture Increased Kyphosis Shoulder Posture (L) Rounded,(R) Rounded,(L) Forward,(R) Forward Scapula Posture (R) Protracted,(R) Retracted,( R) Elevated,(R) Winged,(R) Tipped Arm Posture (L) Internally Rotated,(R) Internally Rotated Pelvis Posture Anteriorly Tilted Weight Distribution Balanced Hip Posture (L) Externally Rotated,(R) Externally Rotated Palpation Assessment Location cervical spine Palpation Details tenderness along R side of spine, no tenderness along midline; upper cervical more limited than lower cervical spine tightness along R paraspinals. abnormal scapular positioning PT-OP-K Range of Motion Start: 07/03/24 16:16 Freq: Status: Active Protocol: Document 07/04/24 13:02 NM (Rec: 07/04/24 14:03 NM [id number]) Cervical Spine Range of Motion Cervical Spine Active Degrees Flexion 45 Extension 30 Rotation Left 55 Rotation Right 25 Lateral Flexion Left 20 Lateral Flexion Right 15 Comments pain with R LF, R rot decreased thoracic mobility Shoulder Goniometric Range of Motion Shoulder ROM Limitations Comments observable limitations on R side PT-OP-L Special Tests Start: 07/03/24 16:16 Freq: Status: Active Protocol: Document 07/11/24 11:34 NM (Rec: 07/11/24 12:23 NM [id number]) Special Tests Cervical Spine Special Tests Passive Neck Flexion Test Results + Comments better rot c/ flex but still limited Vertebral artery screen Test Results CN limited, no PN changes; no position test d/t hx of CVA Comments 133/84 mmHg, 73 bpm; WFL carotid/cardiac ausc/palp Transverse Ligament Test Results - Alar Ligament Test Results - Traction Test Results - Comments inc R sided pain, no radiation Other Special Tests Special Tests Tragus-wall: 11 cm PT-OP-M Strength Start: 07/03/24 16:16 Freq: Status: Active Protocol: Document 07/04/24 13:02 NM (Rec: 07/04/24 14:03 NM [id number]) Cervical Spine Strength Cervical Spine Manual Muscle Testing Flexion (C1-2) 3+ Fair+ Extension 3+ Fair+ Rotation Left 3+ Fair+ Rotation Right 3+ Fair+ Lateral Flexion Left (C3) 3+ Fair+ Lateral Flexion Right (C3) 3+ Fair+ Comments no pain with resisted testing Shoulder Strength Shoulder Manual Muscle Testing Right Flexion 4- Good- Extension 4- Good- Abduction (C5) 4- Good- Adduction 4- Good- Left Flexion 4- Good- Extension 4- Good- External Rotation 4- Good- Internal Rotation 4- Good- Elbow/Forearm Strength Elbow and Forearm Manual Muscle Testing Right Flexion (C6) 4- Good- Extension (C7) 4- Good- Left Flexion (C6) 4- Good- Extension (C7) 4- Good- Wrist Strength Wrist Manual Muscle Testing Right Flexion (C7) 4- Good- Extension (C6) 4- Good- Left Flexion (C7) 4- Good- Extension (C6) 4- Good- PT-OP-Q Treatments Start: 07/03/24 16:16 Freq: Status: Active Protocol: Document 07/11/24 11:34 NM (Rec: 07/11/24 12:23 NM [id number]) Therapeutic Exercises Supine Exercises overhead flexion Supine Exercise Name lat stretch Side bilateral Equipment Used dowel c/ 2# wt for overpressure at end range Reps/Minutes 10x2 Comments max cues for form and breathwork, no pain snow rebecca Supine Exercise Name HEP Side bilateral Reps/Minutes 15 Comments cued form, set up cervical retraction Supine Exercise Name HEP Side bilateral Equipment Used into pillow Reps/Minutes 2x8 pec stretch Supine Exercise Name 1. T, 2. hands behind head, 3. arms above head Side bilateral Equipment Used pillow under head Reps/Minutes 60 ea Comments less ROM c/ arms above head; HEP review Sitting Exercises scapular retraction Sitting Exercise Name HEP Side bilateral Resistance AROM Equipment Used pillow on lap Reps/Minutes 15 Comments tactile cues from PT initially , cues limit trunk ext comp Standing Exercises wall posture Standing Exercise Name 1. posture, 2. snow rebecca Equipment Used towel roll behind head Reps/Minutes 1. 1 min, 2. 5- limited ROM Comments cued form; reports L scap pain post posture (gone 2 min) Manual Therapy Treatment Consent Patient gave verbal consent for manual Yes treatment Soft Tissue Mobilization cervical spine Body Location LS, traps Mobilization Type Rolling,Sustained Pressure Intensity/Depth Superficial Body Position Hooklying trunk/chest/shoulders Body Location pecs, lat, subclavius Mobilization Type Rolling,Strumming,Sustained Pressure Intensity/Depth Moderate Body Position Hooklying Comments Restrictions B pecs Self-Care/Home Management Treatment Education Patient Education Fall Risk,Home Exercise Program,Joint Protection, Safety Other Education PT spoke to pt and his , recommended performing supine HEP on bed instead on transferring to/from floor PT-OP-T Assessment and Plan Start: 07/03/24 16:16 Freq: Status: Active Protocol: Document 07/11/24 11:34 NM (Rec: 07/11/24 12:23 NM [id number]) Physical Therapy Assessment Goals Three Impairment postural restrictions, osteoporosis limiting trunk/ neck ROM Short Term Goal (STG) Pt will be educated on body mechanics and safety during exercise due to osteoporosis STG Duration 08/04/24 Longterm Goal (LTG) Pt will improve tragus-wall measurement by at least 2 cm in order to demos improved spinal posture to offload cervical spine LTG Duration 09/01/24 Two Impairment painful limitations in cervical spine ROM, especially R rotation Coffee Bar Attendant Goal (LTG) If appropriate, pt will improve R cervical spine rotation to at least 45 deg in order to improve visual scanning while driving on his tractor LTG Duration 09/01/24 One Impairment not performing HEP Coffee Bar Attendant Goal (LTG) Pt will report compliance with HEP at least 2x/wk in order to maximize progression with PT and transition to maintenance upon discharge from PT LTG Duration 09/01/24 Assessment Summary Assessment Pt tolerated session well. Demos observable improvement in cervical spine ROM with retraction and postural extension. Trialed postural re -education at wall; pt has increased short-term pain in L scapula following standing posture exercise. Initiated cervical spine retraction and postural re-education in supine/sitting to improve posterior chain muscle lengthening and activation for improved postural mechanics. Needs moderate cueing for all exercises for carryover; improved with reps. Pt would continue to benefit from skilled PT for progressive mobility and strengthening in addition to postural re- education for improved pain management. Physical Therapy Plan Frequency and Duration Frequency of Treatment 1-2x/wk Duration of treatment (weeks) 8 Plan of Care Start Date 07/04/24 Plan of Care End Date 09/01/24 Therapeutic Interventions Therapeutic Interventions Canalithic Repositioning, Coordination Training,Gait Training,Home Exercise Program ,Joint Mobilizations,Manual Therapy,Neuromuscular Re- education,Orthotic/Prosthetic Management,Patient/Caregiver Education,Self-Care/Home Management,Sensory Integration ,Soft Tissue Mobilization, Taping,Therapeutic Activities, Therapeutic Exercises, Vestibular Rehabilitation Other Therapeutic Interventions grade I-II joint mobilizations only d/t osteoporosis no modalities d/t hx of cancer Next Visit Focus/Plan Next Note Type Treatment Note Next Visit Plan precautions: hx CVA, osteoporosis, high blood pressure, active cancer review HEP. retrial wall posture, progress to seated CS retract, TS mobility, chest openers education on osteoporosis, body mechanics, safety cervical retraction, pec stretch, chest opening, periscapular strengthening, improve position of R scapula, progress to rows/low rows with bands etc, wall posture, seated TS mobility manual tx to cervical spine, scapula
--- NOTE | 2024-07-19 13:13 | PT.OTN ---
Current Diagnoses Stiffness of right shoulder, not elsewhere classified (07/19/24) Stiffness of other specified joint, not elsewhere classified (07/19/24) Other spondylosis, cervical region (07/19/24) Cervical disc disorder, unspecified, unspecified cervical region (07/19/24) Cervicalgia (07/19/24) Unsteadiness on feet (07/19/24) Other abnormalities of gait and mobility (07/19/24) Weakness (07/19/24) Physical Therapy Treatment Note PT-OP-A Visit Information Start: 07/03/24 16:16 Freq: Status: Active Protocol: Document 07/19/24 10:46 NM (Rec: 07/19/24 11:37 NM [id number]) Out-Patient Physical Therapy Visit Information Visit Information Visit Type Treatment Note Visit Note Pili, present part of session Visit Start Time 10:47 Visit Stop Time 11:30 Visit Number 08/05 Evaluation Information Evaluation Date 07/04/24 Precautions Precautions Hx stroke c/ R side affected, high blood pressure, osteoporosis, active cancer PT-OP-B Current Condition Start: 07/03/24 16:16 Freq: Status: Active Protocol: Document 07/04/24 13:02 NM (Rec: 07/04/24 14:03 NM [id number]) Current Condition History of Current Condition Onset Date summer/fall 2023 Current Complaints pain with rotation, challenging to drive tractor History of Current Condition Pt presents with cervical spine pain. Has been present since at least March 2024, but reports that pt has had pain since last on tractor in summer/fall. Pain is turning his head R. He had a stroke 2 years ago. Reports difficulty with speaking following his CVA. Pt has had imaging, revealing osteoarthritis. Pt reports that something feels like it goes out of joint when turning his head. Pt's helped provide pt history. 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 Pt reports that he does not have numbness/ tingling into his hands. He did fall 3 years ago, but broke his pelvis; landed on his back, life flighted to [facility]. Has osteoporosis. Denies any more recent falls. Reports that balance is poor. Pt currently has prostate cancer, has had for 14 years; currently on a hormone treatment. Treatment Goals Patient/Caregiver Goals improve looking to R for driving tractor, posture Current Functional Impairments (Reported) Functional Limitations- Other driving tractor or car PT-OP-C Subjective Start: 07/03/24 16:16 Freq: Status: Active Protocol: Document 07/19/24 10:46 NM (Rec: 07/19/24 11:37 NM [id number]) OP-PT Subjective Patient Comments Patient Comments Pt reports that his neck is feeling better, especially since focusing on his posture. Reports that this morning, pt 's neck has been clicking more this morning, but states that has been occurring infrequently otherwise. He reports that he did have L infrascapular pain following sessions, states that has had before but occurss infrequently (a few times per week). reports that pt is not complaining as much at home due to pain. PT-OP-F Manual Assessment Start: 07/03/24 16:16 Freq: Status: Active Protocol: Document 07/04/24 13:02 NM (Rec: 07/04/24 14:03 NM [id number]) Manual Assessments Soft Tissue Assessment Soft Tissue Mobility Assessment increased tightness and restrictions of R sided paraspinals and periscapulars tightness and restriction of B pecs, R>L Joint Mobility Assessment Joint Mobility Assessment Hypomobility with lateral glides of cervical spine, hypomobility with PA mobility in supine audible crepitus and clunk with R rotation AROM, none with PROM especially with flexion empty end feel R scapula is more elevated, tipped, protracted; L retracted Other Manual Assessments Other Manual Assessments cranial nerves: I decreased ( unable to smell), II/III/IV/ intact, VII intact, XI intact , XII intact PT-OP-G Mobility & Gait Start: 07/03/24 16:16 Freq: Status: Active Protocol: Document 07/04/24 13:02 NM (Rec: 07/04/24 16:17 NM [id number]) OP Gait Assessment Gait Gait Assistance Required: Independent Distance (Feet) 150 Assistive Devices Assistive Device None Gait Deviations General Gait Pattern Antalgic,Flexed Trunk Comments Gait Comments Decreased trunk rotation, antalgic gait with slight limp , increased lateral translation, forward trunk flexed posture PT-OP-J Posture/Palpation/Skin Start: 07/03/24 16:16 Freq: Status: Active Protocol: Document 07/04/24 13:02 NM (Rec: 07/04/24 14:03 NM [id number]) Posture Evaluation Position Standing Head/C-Spine Posture Forward Head T-Spine Posture Increased Kyphosis Shoulder Posture (L) Rounded,(R) Rounded,(L) Forward,(R) Forward Scapula Posture (R) Protracted,(R) Retracted,( R) Elevated,(R) Winged,(R) Tipped Arm Posture (L) Internally Rotated,(R) Internally Rotated Pelvis Posture Anteriorly Tilted Weight Distribution Balanced Hip Posture (L) Externally Rotated,(R) Externally Rotated Palpation Assessment Location cervical spine Palpation Details tenderness along R side of spine, no tenderness along midline; upper cervical more limited than lower cervical spine tightness along R paraspinals. abnormal scapular positioning PT-OP-K Range of Motion Start: 07/03/24 16:16 Freq: Status: Active Protocol: Document 07/04/24 13:02 NM (Rec: 07/04/24 14:03 NM [id number]) Cervical Spine Range of Motion Cervical Spine Active Degrees Flexion 45 Extension 30 Rotation Left 55 Rotation Right 25 Lateral Flexion Left 20 Lateral Flexion Right 15 Comments pain with R LF, R rot decreased thoracic mobility Shoulder Goniometric Range of Motion Shoulder ROM Limitations Comments observable limitations on R side PT-OP-L Special Tests Start: 07/03/24 16:16 Freq: Status: Active Protocol: Document 07/19/24 13:13 NM (Rec: 07/19/24 13:13 NM [id number]) Special Tests Cervical Spine Special Tests Vertebral artery screen Test Results CN limited, no PN changes; no position test d/t hx of CVA Comments 133/84 mmHg, 73 bpm; WFL carotid/cardiac ausc/palp, nystagmus present PT-OP-M Strength Start: 07/03/24 16:16 Freq: Status: Active Protocol: Document 07/04/24 13:02 NM (Rec: 07/04/24 14:03 NM [id number]) Cervical Spine Strength Cervical Spine Manual Muscle Testing Flexion (C1-2) 3+ Fair+ Extension 3+ Fair+ Rotation Left 3+ Fair+ Rotation Right 3+ Fair+ Lateral Flexion Left (C3) 3+ Fair+ Lateral Flexion Right (C3) 3+ Fair+ Comments no pain with resisted testing Shoulder Strength Shoulder Manual Muscle Testing Right Flexion 4- Good- Extension 4- Good- Abduction (C5) 4- Good- Adduction 4- Good- Left Flexion 4- Good- Extension 4- Good- External Rotation 4- Good- Internal Rotation 4- Good- Elbow/Forearm Strength Elbow and Forearm Manual Muscle Testing Right Flexion (C6) 4- Good- Extension (C7) 4- Good- Left Flexion (C6) 4- Good- Extension (C7) 4- Good- Wrist Strength Wrist Manual Muscle Testing Right Flexion (C7) 4- Good- Extension (C6) 4- Good- Left Flexion (C7) 4- Good- Extension (C6) 4- Good- PT-OP-Q Treatments Start: 07/03/24 16:16 Freq: Status: Active Protocol: Document 07/19/24 10:46 NM (Rec: 07/19/24 11:37 NM [id number]) Therapeutic Exercises Sitting Exercises thoracic mobility Sitting Exercise Name pillow behind back: 1. TS ext, 2. TS rot via 1/2 open book Side bilateral Equipment Used std chair, arms across chest Reps/Minutes 15 ea (arms for R rot partial ROM d/t shoulder pain)-mod cues Comments cued to limit motion if needed d/t pain; CS mobility c/ TS mobility cervical retraction Sitting Exercise Name sitting Equipment Used standard chair Reps/Minutes 10 Comments verbal, visual, tactile cues; improved c/ reps Standing Exercises periscapular Standing Exercise Name trialed in session - 1. low row, 2. row Side bilateral Resistance level 1 band Reps/Minutes 8 ea Comments max cues form ellie no trunk lean; reports lower scap/L sided back pain, d/c Manual Therapy Treatment Consent Patient gave verbal consent for manual Yes treatment Soft Tissue Mobilization cervical spine Body Location LS, traps Mobilization Type Rolling,Sustained Pressure Intensity/Depth Superficial Body Position Sidelying Comments Performed B sidelying, pillow between legs. Performed at distal insertion only. no tenderness but has increased restrictions at superior scapular border trunk/chest/shoulders Body Location pecs, lat, subclavius, rotator cuff, intercostals Mobilization Type Rolling,Strumming,Sustained Pressure Intensity/Depth Moderate Body Position Sidelying Comments Performed B sidelying, pillow between legs. Restrictions of B pecs, L intercostals. Reduced with mobilization. monitored for pain PT-OP-T Assessment and Plan Start: 07/03/24 16:16 Freq: Status: Active Protocol: Document 07/19/24 10:46 NM (Rec: 07/19/24 11:37 NM [id number]) Physical Therapy Assessment Goals Three Impairment postural restrictions, osteoporosis limiting trunk/ neck ROM Short Term Goal (STG) Pt will be educated on body mechanics and safety during exercise due to osteoporosis STG Duration 08/04/24 Scale Reclamation Tender Goal (LTG) Pt will improve tragus-wall measurement by at least 2 cm in order to demos improved spinal posture to offload cervical spine LTG Duration 09/01/24 Two Impairment painful limitations in cervical spine ROM, especially R rotation Senior Care Goal (LTG) If appropriate, pt will improve R cervical spine rotation to at least 45 deg in order to improve visual scanning while driving on his tractor 07/19/24: 45 deg L rot, 48 deg R rot at start of session LTG Duration 09/01/24 MET One Impairment not performing HEP Scale Reclamation Tender Goal (LTG) Pt will report compliance with HEP at least 2x/wk in order to maximize progression with PT and transition to maintenance upon discharge from PT LTG Duration 09/01/24 Assessment Summary Assessment Pt demos improvement in B cervical spine rotation ROM from L 45 deg and R 48 deg to 55 deg B at end of session. Increased time needed for directions. Observable improvments in ROM with cervical retraction to promote more optimal posture. Initiated thoracic mobility to improve mobility along kinetic chain due to kyphosis; modified due to osteoporosis precautions, to limit pain especially of R shoulder. Pt has increased L scapular/L sided trunk pain when trialed rows and low rows; cueing for less trunk extension and postural compensations but discontinued due to pain. Pt progressing toward goals Physical Therapy Plan Frequency and Duration Frequency of Treatment 1-2x/wk Duration of treatment (weeks) 8 Plan of Care Start Date 07/04/24 Plan of Care End Date 09/01/24 Therapeutic Interventions Therapeutic Interventions Canalithic Repositioning, Coordination Training,Gait Training,Home Exercise Program ,Joint Mobilizations,Manual Therapy,Neuromuscular Re- education,Orthotic/Prosthetic Management,Patient/Caregiver Education,Self-Care/Home Management,Sensory Integration ,Soft Tissue Mobilization, Taping,Therapeutic Activities, Therapeutic Exercises, Vestibular Rehabilitation Other Therapeutic Interventions grade I-II joint mobilizations only d/t osteoporosis no modalities d/t hx of cancer Next Visit Focus/Plan Next Note Type Treatment Note Next Visit Plan precautions: hx CVA, osteoporosis, high blood pressure, active cancer education on osteoporosis, body mechanics, safety with ADLs chest openers supine, periscapular strengthening if tolerated (trial bora at wall vs retrial banded), improve position of R scapula, progress to rows/low rows with bands etc, wall posture, seated TS mobility, address goals manual tx to cervical spine, scapula
--- NOTE | 2024-07-25 12:18 | PT.OTN ---
Current Diagnoses Stiffness of right shoulder, not elsewhere classified (07/25/24) Stiffness of other specified joint, not elsewhere classified (07/25/24) Other spondylosis, cervical region (07/25/24) Cervical disc disorder, unspecified, unspecified cervical region (07/25/24) Cervicalgia (07/25/24) Unsteadiness on feet (07/25/24) Other abnormalities of gait and mobility (07/25/24) Weakness (07/25/24) Physical Therapy Treatment Note PT-OP-A Visit Information Start: 07/03/24 16:16 Freq: Status: Active Protocol: Document 07/25/24 10:44 AB (Rec: 07/25/24 12:18 AB [id number]) Out-Patient Physical Therapy Visit Information Visit Information Visit Type Treatment Note Visit Note Pili, present part of session Visit Start Time 11:27 Visit Stop Time 12:16 Visit Number 4 Number of LABORER [employer] Visits 1 Evaluation Information Evaluation Date 07/04/24 Precautions Precautions Hx stroke c/ R side affected, high blood pressure, osteoporosis, active cancer PT-OP-B Current Condition Start: 07/03/24 16:16 Freq: Status: Active Protocol: Document 07/04/24 13:02 NM (Rec: 07/04/24 14:03 NM [id number]) Current Condition History of Current Condition Onset Date summer/fall 2023 Current Complaints pain with rotation, challenging to drive tractor History of Current Condition Pt presents with cervical spine pain. Has been present since at least March 2024, but reports that pt has had pain since last on tractor in summer/fall. Pain is turning his head R. He had a stroke 2 years ago. Reports difficulty with speaking following his CVA. Pt has had imaging, revealing osteoarthritis. Pt reports that something feels like it goes out of joint when turning his head. Pt's helped provide pt history. 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 Pt reports that he does not have numbness/ tingling into his hands. He did fall 3 years ago, but broke his pelvis; landed on his back, life flighted to [facility]. Has osteoporosis. Denies any more recent falls. Reports that balance is poor. Pt currently has prostate cancer, has had for 14 years; currently on a hormone treatment. Treatment Goals Patient/Caregiver Goals improve looking to R for driving tractor, posture Current Functional Impairments (Reported) Functional Limitations- Other driving tractor or car PT-OP-C Subjective Start: 07/03/24 16:16 Freq: Status: Active Protocol: Document 07/25/24 10:44 AB (Rec: 07/25/24 12:18 AB [id number]) OP-PT Subjective Patient Comments Patient Comments Patient reports he is a little better, not sure how much he did since last appointment, but did well the week before. Pt reports prostate med uses up his energy. AROM CS rotation R< L PT-OP-F Manual Assessment Start: 07/03/24 16:16 Freq: Status: Active Protocol: Document 07/04/24 13:02 NM (Rec: 07/04/24 14:03 NM [id number]) Manual Assessments Soft Tissue Assessment Soft Tissue Mobility Assessment increased tightness and restrictions of R sided paraspinals and periscapulars tightness and restriction of B pecs, R>L Joint Mobility Assessment Joint Mobility Assessment Hypomobility with lateral glides of cervical spine, hypomobility with PA mobility in supine audible crepitus and clunk with R rotation AROM, none with PROM especially with flexion empty end feel R scapula is more elevated, tipped, protracted; L retracted Other Manual Assessments Other Manual Assessments cranial nerves: I decreased ( unable to smell), II/III/IV/ intact, VII intact, XI intact , XII intact PT-OP-G Mobility & Gait Start: 07/03/24 16:16 Freq: Status: Active Protocol: Document 07/04/24 13:02 NM (Rec: 07/04/24 16:17 NM [id number]) OP Gait Assessment Gait Gait Assistance Required: Independent Distance (Feet) 150 Assistive Devices Assistive Device None Gait Deviations General Gait Pattern Antalgic,Flexed Trunk Comments Gait Comments Decreased trunk rotation, antalgic gait with slight limp , increased lateral translation, forward trunk flexed posture PT-OP-J Posture/Palpation/Skin Start: 07/03/24 16:16 Freq: Status: Active Protocol: Document 07/04/24 13:02 NM (Rec: 07/04/24 14:03 NM [id number]) Posture Evaluation Position Standing Head/C-Spine Posture Forward Head T-Spine Posture Increased Kyphosis Shoulder Posture (L) Rounded,(R) Rounded,(L) Forward,(R) Forward Scapula Posture (R) Protracted,(R) Retracted,( R) Elevated,(R) Winged,(R) Tipped Arm Posture (L) Internally Rotated,(R) Internally Rotated Pelvis Posture Anteriorly Tilted Weight Distribution Balanced Hip Posture (L) Externally Rotated,(R) Externally Rotated Palpation Assessment Location cervical spine Palpation Details tenderness along R side of spine, no tenderness along midline; upper cervical more limited than lower cervical spine tightness along R paraspinals. abnormal scapular positioning PT-OP-K Range of Motion Start: 07/03/24 16:16 Freq: Status: Active Protocol: Document 07/04/24 13:02 NM (Rec: 07/04/24 14:03 NM [id number]) Cervical Spine Range of Motion Cervical Spine Active Degrees Flexion 45 Extension 30 Rotation Left 55 Rotation Right 25 Lateral Flexion Left 20 Lateral Flexion Right 15 Comments pain with R LF, R rot decreased thoracic mobility Shoulder Goniometric Range of Motion Shoulder ROM Limitations Comments observable limitations on R side PT-OP-L Special Tests Start: 07/03/24 16:16 Freq: Status: Active Protocol: Document 07/19/24 13:13 NM (Rec: 07/19/24 13:13 NM [id number]) Special Tests Cervical Spine Special Tests Vertebral artery screen Test Results CN limited, no PN changes; no position test d/t hx of CVA Comments 133/84 mmHg, 73 bpm; WFL carotid/cardiac ausc/palp, nystagmus present PT-OP-M Strength Start: 07/03/24 16:16 Freq: Status: Active Protocol: Document 07/04/24 13:02 NM (Rec: 07/04/24 14:03 NM [id number]) Cervical Spine Strength Cervical Spine Manual Muscle Testing Flexion (C1-2) 3+ Fair+ Extension 3+ Fair+ Rotation Left 3+ Fair+ Rotation Right 3+ Fair+ Lateral Flexion Left (C3) 3+ Fair+ Lateral Flexion Right (C3) 3+ Fair+ Comments no pain with resisted testing Shoulder Strength Shoulder Manual Muscle Testing Right Flexion 4- Good- Extension 4- Good- Abduction (C5) 4- Good- Adduction 4- Good- Left Flexion 4- Good- Extension 4- Good- External Rotation 4- Good- Internal Rotation 4- Good- Elbow/Forearm Strength Elbow and Forearm Manual Muscle Testing Right Flexion (C6) 4- Good- Extension (C7) 4- Good- Left Flexion (C6) 4- Good- Extension (C7) 4- Good- Wrist Strength Wrist Manual Muscle Testing Right Flexion (C7) 4- Good- Extension (C6) 4- Good- Left Flexion (C7) 4- Good- Extension (C6) 4- Good- PT-OP-Q Treatments Start: 07/03/24 16:16 Freq: Status: Active Protocol: Document 07/25/24 10:44 AB (Rec: 07/25/24 12:18 AB [id number]) Therapeutic Exercises Supine Exercises CS rotation Supine Exercise Name on occ float Side bilateral Reps/Minutes 2 min Comments vc to perform slowly in pain free range overhead flexion Supine Exercise Name lat stretch Side bilateral Equipment Used dowel c/ 2# wt for overpressure at end range Reps/Minutes 10x snow rebecca Supine Exercise Name HEP Side bilateral Reps/Minutes 15 Comments cued form, set up cervical retraction Supine Exercise Name HEP Side bilateral Equipment Used into pillow Reps/Minutes x8 pec stretch Supine Exercise Name 1. T, 2. hands behind head, 3. arms above head Side bilateral Equipment Used pillow under head Reps/Minutes 60 ea Comments post manual, verbal, visual and tactile cues Sitting Exercises thoracic mobility Sitting Exercise Name pillow behind back: 1. TS ext, 2. TS rot via 1/2 open book Side bilateral Equipment Used std chair, arms across chest Reps/Minutes X10 each Comments verbal and visual cues Manual Therapy Treatment Consent Patient gave verbal consent for manual Yes treatment Soft Tissue Mobilization cervical spine Body Location LS, traps Mobilization Type Rolling,Sustained Pressure Intensity/Depth Superficial Body Position SEated Comments pillow under UEs trunk/chest/shoulders Body Location pecs, lat, subclavius, rotator cuff, intercostals Mobilization Type Rolling,Strumming,Sustained Pressure Intensity/Depth Moderate Body Position Sidelying Comments Performed B sidelying, pillow between legs. Joint Mobilizations scapular mobilization Joint bilateral scapulae Direction into add and depression Grade II Body Position Sidelying Reps/Duration X10 each scapula each direction Comments monitored for pain PT-OP-T Assessment and Plan Start: 07/03/24 16:16 Freq: Status: Active Protocol: Document 07/25/24 10:44 AB (Rec: 07/25/24 12:18 AB [id number]) Physical Therapy Assessment Goals Three Impairment postural restrictions, osteoporosis limiting trunk/ neck ROM Short Term Goal (STG) Pt will be educated on body mechanics and safety during exercise due to osteoporosis STG Duration 08/04/24 Shelter Goal (LTG) Pt will improve tragus-wall measurement by at least 2 cm in order to demos improved spinal posture to offload cervical spine LTG Duration 09/01/24 Two Impairment painful limitations in cervical spine ROM, especially R rotation Cow Washer Goal (LTG) If appropriate, pt will improve R cervical spine rotation to at least 45 deg in order to improve visual scanning while driving on his tractor 07/19/24: 45 deg L rot, 48 deg R rot at start of session LTG Duration 09/01/24 MET One Impairment not performing HEP Shelter Goal (LTG) Pt will report compliance with HEP at least 2x/wk in order to maximize progression with PT and transition to maintenance upon discharge from PT LTG Duration 09/01/24 Assessment Summary Assessment AROM CS rotation equal end of session with patient reporting it feels better. Physical Therapy Plan Frequency and Duration Frequency of Treatment 1-2x/wk Duration of treatment (weeks) 8 Plan of Care Start Date 07/04/24 Plan of Care End Date 09/01/24 Therapeutic Interventions Therapeutic Interventions Canalithic Repositioning, Coordination Training,Gait Training,Home Exercise Program ,Joint Mobilizations,Manual Therapy,Neuromuscular Re- education,Orthotic/Prosthetic Management,Patient/Caregiver Education,Self-Care/Home Management,Sensory Integration ,Soft Tissue Mobilization, Taping,Therapeutic Activities, Therapeutic Exercises, Vestibular Rehabilitation Other Therapeutic Interventions grade I-II joint mobilizations only d/t osteoporosis no modalities d/t hx of cancer Next Visit Focus/Plan Next Note Type Treatment Note Next Visit Plan precautions: hx CVA, osteoporosis, high blood pressure, active cancer education on osteoporosis, body mechanics, safety with ADLs chest openers supine, periscapular strengthening if tolerated (trial bora at wall vs retrial banded), improve position of R scapula, progress to/revisit rows/low rows with bands etc, wall posture, seated TS mobility, address goals manual tx to cervical spine, scapula
--- NOTE | 2024-08-04 12:24 | PT.OTN ---
Current Diagnoses Stiffness of right shoulder, not elsewhere classified (08/04/24) Stiffness of other specified joint, not elsewhere classified (08/04/24) Other spondylosis, cervical region (08/04/24) Cervical disc disorder, unspecified, unspecified cervical region (08/04/24) Cervicalgia (08/04/24) Unsteadiness on feet (08/04/24) Other abnormalities of gait and mobility (08/04/24) Weakness (08/04/24) Physical Therapy Treatment Note PT-OP-A Visit Information Start: 07/03/24 16:16 Freq: Status: Active Protocol: Document 08/04/24 10:44 AB (Rec: 08/04/24 12:24 AB [id number]) Out-Patient Physical Therapy Visit Information Visit Information Visit Type Treatment Note Visit Note not present Visit Start Time 11:36 Visit Stop Time 12:20 Visit Number 10/05 Number of NUCLEAR FUELS RECLAMATION ENGINEER Visits 2 Evaluation Information Evaluation Date 07/04/24 Precautions Precautions Hx stroke c/ R side affected, high blood pressure, osteoporosis, active cancer PT-OP-B Current Condition Start: 07/03/24 16:16 Freq: Status: Active Protocol: Document 07/04/24 13:02 NM (Rec: 07/04/24 14:03 NM [id number]) Current Condition History of Current Condition Onset Date summer/fall 2023 Current Complaints pain with rotation, challenging to drive tractor History of Current Condition Pt presents with cervical spine pain. Has been present since at least March 2024, but reports that pt has had pain since last on tractor in summer/fall. Pain is turning his head R. He had a stroke 2 years ago. Reports difficulty with speaking following his CVA. Pt has had imaging, revealing osteoarthritis. Pt reports that something feels like it goes out of joint when turning his head. Pt's helped provide pt history. 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 Pt reports that he does not have numbness/ tingling into his hands. He did fall 3 years ago, but broke his pelvis; landed on his back, life flighted to [facility]. Has osteoporosis. Denies any more recent falls. Reports that balance is poor. Pt currently has prostate cancer, has had for 14 years; currently on a hormone treatment. Treatment Goals Patient/Caregiver Goals improve looking to R for driving tractor, posture Current Functional Impairments (Reported) Functional Limitations- Other driving tractor or car PT-OP-C Subjective Start: 07/03/24 16:16 Freq: Status: Active Protocol: Document 08/04/24 10:44 AB (Rec: 08/04/24 12:24 AB [id number]) OP-PT Subjective Patient Comments Patient Comments Patient reports not really, when questioned regarding neck pain. With AROM CS rotation R report 06/02 pain R side, slightly decreased R compared to L. PT-OP-F Manual Assessment Start: 07/03/24 16:16 Freq: Status: Active Protocol: Document 07/04/24 13:02 NM (Rec: 07/04/24 14:03 NM [id number]) Manual Assessments Soft Tissue Assessment Soft Tissue Mobility Assessment increased tightness and restrictions of R sided paraspinals and periscapulars tightness and restriction of B pecs, R>L Joint Mobility Assessment Joint Mobility Assessment Hypomobility with lateral glides of cervical spine, hypomobility with PA mobility in supine audible crepitus and clunk with R rotation AROM, none with PROM especially with flexion empty end feel R scapula is more elevated, tipped, protracted; L retracted Other Manual Assessments Other Manual Assessments cranial nerves: I decreased ( unable to smell), II/III/IV/ intact, VII intact, XI intact , XII intact PT-OP-G Mobility & Gait Start: 07/03/24 16:16 Freq: Status: Active Protocol: Document 07/04/24 13:02 NM (Rec: 07/04/24 16:17 NM [id number]) OP Gait Assessment Gait Gait Assistance Required: Independent Distance (Feet) 150 Assistive Devices Assistive Device None Gait Deviations General Gait Pattern Antalgic,Flexed Trunk Comments Gait Comments Decreased trunk rotation, antalgic gait with slight limp , increased lateral translation, forward trunk flexed posture PT-OP-J Posture/Palpation/Skin Start: 07/03/24 16:16 Freq: Status: Active Protocol: Document 07/04/24 13:02 NM (Rec: 07/04/24 14:03 NM [id number]) Posture Evaluation Position Standing Head/C-Spine Posture Forward Head T-Spine Posture Increased Kyphosis Shoulder Posture (L) Rounded,(R) Rounded,(L) Forward,(R) Forward Scapula Posture (R) Protracted,(R) Retracted,( R) Elevated,(R) Winged,(R) Tipped Arm Posture (L) Internally Rotated,(R) Internally Rotated Pelvis Posture Anteriorly Tilted Weight Distribution Balanced Hip Posture (L) Externally Rotated,(R) Externally Rotated Palpation Assessment Location cervical spine Palpation Details tenderness along R side of spine, no tenderness along midline; upper cervical more limited than lower cervical spine tightness along R paraspinals. abnormal scapular positioning PT-OP-K Range of Motion Start: 07/03/24 16:16 Freq: Status: Active Protocol: Document 07/04/24 13:02 NM (Rec: 07/04/24 14:03 NM [id number]) Cervical Spine Range of Motion Cervical Spine Active Degrees Flexion 45 Extension 30 Rotation Left 55 Rotation Right 25 Lateral Flexion Left 20 Lateral Flexion Right 15 Comments pain with R LF, R rot decreased thoracic mobility Shoulder Goniometric Range of Motion Shoulder ROM Limitations Comments observable limitations on R side PT-OP-L Special Tests Start: 07/03/24 16:16 Freq: Status: Active Protocol: Document 07/19/24 13:13 NM (Rec: 07/19/24 13:13 NM [id number]) Special Tests Cervical Spine Special Tests Vertebral artery screen Test Results CN limited, no PN changes; no position test d/t hx of CVA Comments 133/84 mmHg, 73 bpm; WFL carotid/cardiac ausc/palp, nystagmus present PT-OP-M Strength Start: 07/03/24 16:16 Freq: Status: Active Protocol: Document 07/04/24 13:02 NM (Rec: 07/04/24 14:03 NM [id number]) Cervical Spine Strength Cervical Spine Manual Muscle Testing Flexion (C1-2) 3+ Fair+ Extension 3+ Fair+ Rotation Left 3+ Fair+ Rotation Right 3+ Fair+ Lateral Flexion Left (C3) 3+ Fair+ Lateral Flexion Right (C3) 3+ Fair+ Comments no pain with resisted testing Shoulder Strength Shoulder Manual Muscle Testing Right Flexion 4- Good- Extension 4- Good- Abduction (C5) 4- Good- Adduction 4- Good- Left Flexion 4- Good- Extension 4- Good- External Rotation 4- Good- Internal Rotation 4- Good- Elbow/Forearm Strength Elbow and Forearm Manual Muscle Testing Right Flexion (C6) 4- Good- Extension (C7) 4- Good- Left Flexion (C6) 4- Good- Extension (C7) 4- Good- Wrist Strength Wrist Manual Muscle Testing Right Flexion (C7) 4- Good- Extension (C6) 4- Good- Left Flexion (C7) 4- Good- Extension (C6) 4- Good- PT-OP-Q Treatments Start: 07/03/24 16:16 Freq: Status: Active Protocol: Document 08/04/24 10:44 AB (Rec: 08/04/24 12:24 AB [id number]) Therapeutic Exercises Supine Exercises CS rotation Supine Exercise Name on occ float Side bilateral Reps/Minutes 2 min Comments vc to perform slowly in pain free range pec stretch Supine Exercise Name 1. T, 2. hands behind head, 3. arms above head Side bilateral Equipment Used pillow under head Reps/Minutes 60 ea Comments post manual, verbal, visual and tactile cues Sitting Exercises UT stretch Sitting Exercise Name holding chair seat Side bilateral Reps/Minutes 60 sec each side Comments verbal and visual cues Standing Exercises periscapular Standing Exercise Name trialed in session - 1. low row, 2. row Side bilateral Resistance level 2 band Reps/Minutes 10 ea Comments max cues form ellie no trunk lean; reports lower scap/L sided back pain, d/c Manual Therapy Treatment Consent Patient gave verbal consent for manual Yes treatment Soft Tissue Mobilization cervical spine Body Location LS, traps, scalenes at clavicle, int vert tissue, CS paraspinals Mobilization Type Rolling,Sustained Pressure Intensity/Depth Superficial Body Position Seated Comments pillow under UEs to moderate trunk/chest/shoulders Body Location pecs, lat, subclavius, rotator cuff, intercostals Mobilization Type Rolling,Strumming,Sustained Pressure Intensity/Depth Moderate Body Position Sidelying Comments Performed B sidelying, pillow between legs. Joint Mobilizations scapular mobilization Joint bilateral scapulae Direction into add and depression Grade II Body Position Sidelying Reps/Duration X10 each scapula each direction Comments monitored for pain PT-OP-T Assessment and Plan Start: 07/03/24 16:16 Freq: Status: Active Protocol: Document 08/04/24 10:44 AB (Rec: 08/04/24 12:24 AB [id number]) Physical Therapy Assessment Goals Three Impairment postural restrictions, osteoporosis limiting trunk/ neck ROM Short Term Goal (STG) Pt will be educated on body mechanics and safety during exercise due to osteoporosis STG Duration 08/04/24 Correction Goal (LTG) Pt will improve tragus-wall measurement by at least 2 cm in order to demos improved spinal posture to offload cervical spine LTG Duration 09/01/24 Two Impairment painful limitations in cervical spine ROM, especially R rotation Correction Goal (LTG) If appropriate, pt will improve R cervical spine rotation to at least 45 deg in order to improve visual scanning while driving on his tractor 07/19/24: 45 deg L rot, 48 deg R rot at start of session LTG Duration 09/01/24 MET One Impairment not performing HEP Night Patrol Inspector Goal (LTG) Pt will report compliance with HEP at least 2x/wk in order to maximize progression with PT and transition to maintenance upon discharge from PT LTG Duration 09/01/24 Assessment Summary Assessment AROM CS equal L to right end of session, reporting AROM R CS rotation is without pain, but does have L scapular pain 1-2/10 end of session. Physical Therapy Plan Frequency and Duration Frequency of Treatment 1-2x/wk Duration of treatment (weeks) 8 Plan of Care Start Date 07/04/24 Plan of Care End Date 09/01/24 Next Visit Focus/Plan Next Note Type Treatment Note Next Visit Plan precautions: hx CVA, osteoporosis, high blood pressure, active cancer education on osteoporosis, body mechanics, safety with ADLs chest openers supine, periscapular strengthening if tolerated (trial bora at wall vs retrial banded), improve position of R scapula, progress to/revisit rows/low rows with bands etc, wall posture, seated TS mobility, address goals manual tx to cervical spine, scapula
--- NOTE | 2024-08-09 12:19 | PT.OTN ---
Current Diagnoses Stiffness of right shoulder, not elsewhere classified (08/09/24) Stiffness of other specified joint, not elsewhere classified (08/09/24) Other spondylosis, cervical region (08/09/24) Cervical disc disorder, unspecified, unspecified cervical region (08/09/24) Cervicalgia (08/09/24) Unsteadiness on feet (08/09/24) Other abnormalities of gait and mobility (08/09/24) Weakness (08/09/24) Physical Therapy Treatment Note PT-OP-A Visit Information Start: 07/03/24 16:16 Freq: Status: Active Protocol: Document 08/09/24 11:28 MB (Rec: 08/09/24 12:19 MB [id number]) Out-Patient Physical Therapy Visit Information Visit Information Visit Type Progress Note Visit Note Pili is Visit Start Time 11:28 Visit Stop Time 12:08 Visit Number 11/05 Number of BILINGUAL NANNY Visits 0 Evaluation Information Evaluation Date 07/04/24 Precautions Precautions Hx stroke c/ R side and speech affected, high blood pressure , osteoporosis, active prostate CA that pt reports has not met, taking blood thinner PT-OP-B Current Condition Start: 07/03/24 16:16 Freq: Status: Active Protocol: Document 07/04/24 13:02 NM (Rec: 07/04/24 14:03 NM [id number]) Current Condition History of Current Condition Onset Date summer/fall 2023 Current Complaints pain with rotation, challenging to drive tractor History of Current Condition Pt presents with cervical spine pain. Has been present since at least March 2024, but reports that pt has had pain since last on tractor in summer/fall. Pain is turning his head R. He had a stroke 2 years ago. Reports difficulty with speaking following his CVA. Pt has had imaging, revealing osteoarthritis. Pt reports that something feels like it goes out of joint when turning his head. Pt's helped provide pt history. 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 Pt reports that he does not have numbness/ tingling into his hands. He did fall 3 years ago, but broke his pelvis; landed on his back, life flighted to [facility]. Has osteoporosis. Denies any more recent falls. Reports that balance is poor. Pt currently has prostate cancer, has had for 14 years; currently on a hormone treatment. Treatment Goals Patient/Caregiver Goals improve looking to R for driving tractor, posture Current Functional Impairments (Reported) Functional Limitations- Other driving tractor or car PT-OP-C Subjective Start: 07/03/24 16:16 Freq: Status: Active Protocol: Document 08/09/24 11:28 MB (Rec: 08/09/24 12:19 MB [id number]) OP-PT Subjective Patient Comments Patient Comments Pt's , Pili, arrives to appointment. Pt is moving in parts that he didn't know he couldn't move before. He is getting chemo shot, Lupron, and his last shot was 06/29/24. His PSA is increasing quickly and he will get a shot every 4 months. The prostate CA is only in prostate per his understanding. PT-OP-F Manual Assessment Start: 07/03/24 16:16 Freq: Status: Active Protocol: Document 07/04/24 13:02 NM (Rec: 07/04/24 14:03 NM [id number]) Manual Assessments Soft Tissue Assessment Soft Tissue Mobility Assessment increased tightness and restrictions of R sided paraspinals and periscapulars tightness and restriction of B pecs, R>L Joint Mobility Assessment Joint Mobility Assessment Hypomobility with lateral glides of cervical spine, hypomobility with PA mobility in supine audible crepitus and clunk with R rotation AROM, none with PROM especially with flexion empty end feel R scapula is more elevated, tipped, protracted; L retracted Other Manual Assessments Other Manual Assessments cranial nerves: I decreased ( unable to smell), II/III/IV/ intact, VII intact, XI intact , XII intact PT-OP-G Mobility & Gait Start: 07/03/24 16:16 Freq: Status: Active Protocol: Document 07/04/24 13:02 NM (Rec: 07/04/24 16:17 NM [id number]) OP Gait Assessment Gait Gait Assistance Required: Independent Distance (Feet) 150 Assistive Devices Assistive Device None Gait Deviations General Gait Pattern Antalgic,Flexed Trunk Comments Gait Comments Decreased trunk rotation, antalgic gait with slight limp , increased lateral translation, forward trunk flexed posture PT-OP-J Posture/Palpation/Skin Start: 07/03/24 16:16 Freq: Status: Active Protocol: Document 07/04/24 13:02 NM (Rec: 07/04/24 14:03 NM [id number]) Posture Evaluation Position Standing Head/C-Spine Posture Forward Head T-Spine Posture Increased Kyphosis Shoulder Posture (L) Rounded,(R) Rounded,(L) Forward,(R) Forward Scapula Posture (R) Protracted,(R) Retracted,( R) Elevated,(R) Winged,(R) Tipped Arm Posture (L) Internally Rotated,(R) Internally Rotated Pelvis Posture Anteriorly Tilted Weight Distribution Balanced Hip Posture (L) Externally Rotated,(R) Externally Rotated Palpation Assessment Location cervical spine Palpation Details tenderness along R side of spine, no tenderness along midline; upper cervical more limited than lower cervical spine tightness along R paraspinals. abnormal scapular positioning PT-OP-K Range of Motion Start: 07/03/24 16:16 Freq: Status: Active Protocol: Document 07/04/24 13:02 NM (Rec: 07/04/24 14:03 NM [id number]) Cervical Spine Range of Motion Cervical Spine Active Degrees Flexion 45 Extension 30 Rotation Left 55 Rotation Right 25 Lateral Flexion Left 20 Lateral Flexion Right 15 Comments pain with R LF, R rot decreased thoracic mobility Shoulder Goniometric Range of Motion Shoulder ROM Limitations Comments observable limitations on R side PT-OP-L Special Tests Start: 07/03/24 16:16 Freq: Status: Active Protocol: Document 07/19/24 13:13 NM (Rec: 07/19/24 13:13 NM [id number]) Special Tests Cervical Spine Special Tests Vertebral artery screen Test Results CN limited, no PN changes; no position test d/t hx of CVA Comments 133/84 mmHg, 73 bpm; WFL carotid/cardiac ausc/palp, nystagmus present PT-OP-M Strength Start: 07/03/24 16:16 Freq: Status: Active Protocol: Document 07/04/24 13:02 NM (Rec: 07/04/24 14:03 NM [id number]) Cervical Spine Strength Cervical Spine Manual Muscle Testing Flexion (C1-2) 3+ Fair+ Extension 3+ Fair+ Rotation Left 3+ Fair+ Rotation Right 3+ Fair+ Lateral Flexion Left (C3) 3+ Fair+ Lateral Flexion Right (C3) 3+ Fair+ Comments no pain with resisted testing Shoulder Strength Shoulder Manual Muscle Testing Right Flexion 4- Good- Extension 4- Good- Abduction (C5) 4- Good- Adduction 4- Good- Left Flexion 4- Good- Extension 4- Good- External Rotation 4- Good- Internal Rotation 4- Good- Elbow/Forearm Strength Elbow and Forearm Manual Muscle Testing Right Flexion (C6) 4- Good- Extension (C7) 4- Good- Left Flexion (C6) 4- Good- Extension (C7) 4- Good- Wrist Strength Wrist Manual Muscle Testing Right Flexion (C7) 4- Good- Extension (C6) 4- Good- Left Flexion (C7) 4- Good- Extension (C6) 4- Good- PT-OP-Q Treatments Start: 07/03/24 16:16 Freq: Status: Active Protocol: Document 08/09/24 11:28 MB (Rec: 08/09/24 12:19 MB [id number]) Therapeutic Exercises Supine Exercises cervical retraction Comments Demonstrates today Standing Exercises Tennis ball massage Standing Exercise Name HEP and handout provided Comments Intrascapular muscles, and switched to racquet ball Neuro Re-Education Treatment Balance Activities FGA Comments Score is 12/30, reflecting increased risk for falling and see next treatment for exercises to add for balance at home, checking to see if he can perform safely with sliding fingernail along wall for third point of contact Self-Care/Home Management Treatment Education Patient Education Body Mechanics,Fall Risk,Home Exercise Program,Joint Protection,Pain Management, Posture Other Education Pt just switching over to this PT as primary since his PT moved and discussed progress note today and plan going forward and pt and would like to con't PT 1x/wk, discussed plan to add in balance testing and exercises and to review HEP in future treatments and pt will demo as does not wish to have to remind him to do exercises at home PT-OP-T Assessment and Plan Start: 07/03/24 16:16 Freq: Status: Active Protocol: Document 08/09/24 11:28 MB (Rec: 08/09/24 12:19 MB [id number]) Physical Therapy Assessment Goals 5 Impairment Evidence of imbalance Assisted Goal (LTG) Pt will perform FGA WNLs to decrease fall risk. 08/09/24: FGA score is 12/30, indicating increased risk for falling LTG Duration 8 weeks 4 Impairment Decreased I and performance of HEP everyday Staff Counsel Goal (LTG) Pt will demonstrate HEP with cues only and will report performing at least some exercises from program everyday. LTG Duration 8 weeks Three Impairment postural restrictions, osteoporosis limiting trunk/ neck ROM Short Term Goal (STG) Pt will be educated on body mechanics and safety during exercise due to osteoporosis 08/09/24: Pt reports that he is working on his posture with some of his exercises including chin tuck. STG Duration 08/04/24 Staff Counsel Goal (LTG) Pt will improve tragus-wall measurement by at least 2 cm in order to demos improved spinal posture to offload cervical spine 08/09/24: Left tragus 13 cm from wall and left occiput protruberance 7.5 cm from wall . LTG Duration 10/09/24 Two Impairment painful limitations in cervical spine ROM, especially R rotation Assisted Goal (LTG) If appropriate, pt will improve R cervical spine rotation to at least 45 deg in order to improve visual scanning while driving on his tractor 07/19/24: 45 deg L rot, 48 deg R rot at start of session LTG Duration 09/01/24 MET One Impairment not performing HEP Assisted Goal (LTG) Pt will report compliance with HEP at least 2x/wk in order to maximize progression with PT and transition to maintenance upon discharge from PT 08/09/24: Pt is performing HEP 2x/wk. LTG Duration 09/01/24 MET Assessment Summary Assessment Progress note today and pt is performing exercises at least 2x/wk and met cervical rotation goal previously. Measured tragus and occipital protruberance from wall today, checked balance and added balance goal. Con't PT 1x/wk per plan below. Physical Therapy Plan Frequency and Duration Frequency of Treatment 1x/Week Duration of treatment (weeks) 8 Plan of Care Start Date 08/09/24 Plan of Care End Date 10/09/24 Therapeutic Interventions Therapeutic Interventions Canalithic Repositioning, Coordination Training,Gait Training,Home Exercise Program ,Joint Mobilizations,Manual Therapy,Neuromuscular Re- education,Orthotic/Prosthetic Management,Patient/Caregiver Education,Self-Care/Home Management,Sensory Integration ,Soft Tissue Mobilization, Taping,Therapeutic Activities, Therapeutic Exercises, Vestibular Rehabilitation Other Therapeutic Interventions grade I-II joint mobilizations only d/t osteoporosis no modalities d/t hx of cancer Next Visit Focus/Plan Next Note Type Treatment Note Next Visit Plan Review all HEP and divide up what to do so he has something to do everyday (this PT cannot find exercises from previous PT) Progress thoracic mobility and standing intrascapular and shoulder strengthening exercises. Initiate FGA balance tasks in hallway and make a program: sliding middle fingernail along the hallway, forward walk head turns right and left , forward walk head movements up and down, forward walking eyes closed, backwards walking , tightrope walking--one rep of each for one set and perform 3 sets, once a day
--- NOTE | 2024-08-09 12:20 | PT.OPPOC ---
Physical, Occupational & Speech Therapy At [facility] Current Diagnoses Stiffness of right shoulder, not elsewhere classified (08/09/24) Stiffness of other specified joint, not elsewhere classified (08/09/24) Other spondylosis, cervical region (08/09/24) Cervical disc disorder, unspecified, unspecified cervical region (08/09/24) Cervicalgia (08/09/24) Unsteadiness on feet (08/09/24) Other abnormalities of gait and mobility (08/09/24) Weakness (08/09/24) Visit Care Team Role Provider Type Latrell Acosta MD Attending Provider Non-Staff Family Provider Primary Care Provider Referring Provider Specialty: Family Practice Address: [address] [place] [address], [facility] Email: Plan Of Care PT-OP-B Current Condition Start: 07/03/24 16:16 Freq: Status: Active Protocol: Document 07/04/24 13:02 NM (Rec: 07/04/24 14:03 NM [id number]) Current Condition History of Current Condition Onset Date summer/fall 2023 Current Complaints pain with rotation, challenging to drive tractor History of Current Condition Pt presents with cervical spine pain. Has been present since at least March 2024, but reports that pt has had pain since last on tractor in summer/fall. Pain is turning his head R. He had a stroke 2 years ago. Reports difficulty with speaking following his CVA. Pt has had imaging, revealing osteoarthritis. Pt reports that something feels like it goes out of joint when turning his head. Pt's helped provide pt history. 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 Pt reports that he does not have numbness/ tingling into his hands. He did fall 3 years ago, but broke his pelvis; landed on his back, life flighted to [facility]. Has osteoporosis. Denies any more recent falls. Reports that balance is poor. Pt currently has prostate cancer, has had for 14 years; currently on a hormone treatment. Treatment Goals Patient/Caregiver Goals improve looking to R for driving tractor, posture Current Functional Impairments (Reported) Functional Limitations- Other driving tractor or car PT-OP-T Assessment and Plan Start: 07/03/24 16:16 Freq: Status: Active Protocol: Document 08/09/24 11:28 MB (Rec: 08/09/24 12:19 MB [id number]) Physical Therapy Assessment Goals 5 Impairment Evidence of imbalance Apartment Assistant Manager Goal (LTG) Pt will perform FGA WNLs to decrease fall risk. 08/09/24: FGA score is 12/30, indicating increased risk for falling LTG Duration 8 weeks 4 Impairment Decreased I and performance of HEP everyday Retirement Goal (LTG) Pt will demonstrate HEP with cues only and will report performing at least some exercises from program everyday. LTG Duration 8 weeks Three Impairment postural restrictions, osteoporosis limiting trunk/ neck ROM Short Term Goal (STG) Pt will be educated on body mechanics and safety during exercise due to osteoporosis 08/09/24: Pt reports that he is working on his posture with some of his exercises including chin tuck. STG Duration 08/04/24 Retirement Goal (LTG) Pt will improve tragus-wall measurement by at least 2 cm in order to demos improved spinal posture to offload cervical spine 08/09/24: Left tragus 13 cm from wall and left occiput protruberance 7.5 cm from wall . LTG Duration 10/09/24 Two Impairment painful limitations in cervical spine ROM, especially R rotation Apartment Assistant Manager Goal (LTG) If appropriate, pt will improve R cervical spine rotation to at least 45 deg in order to improve visual scanning while driving on his tractor 07/19/24: 45 deg L rot, 48 deg R rot at start of session LTG Duration 09/01/24 MET One Impairment not performing HEP Apartment Assistant Manager Goal (LTG) Pt will report compliance with HEP at least 2x/wk in order to maximize progression with PT and transition to maintenance upon discharge from PT 08/09/24: Pt is performing HEP 2x/wk. LTG Duration 09/01/24 MET Assessment Summary Assessment Progress note today and pt is performing exercises at least 2x/wk and met cervical rotation goal previously. Measured tragus and occipital protruberance from wall today, checked balance and added balance goal. Con't PT 1x/wk per plan below. Physical Therapy Plan Frequency and Duration Frequency of Treatment 1x/Week Duration of treatment (weeks) 8 Plan of Care Start Date 08/09/24 Plan of Care End Date 10/09/24 Therapeutic Interventions Therapeutic Interventions Canalithic Repositioning, Coordination Training,Gait Training,Home Exercise Program ,Joint Mobilizations,Manual Therapy,Neuromuscular Re- education,Orthotic/Prosthetic Management,Patient/Caregiver Education,Self-Care/Home Management,Sensory Integration ,Soft Tissue Mobilization, Taping,Therapeutic Activities, Therapeutic Exercises, Vestibular Rehabilitation Other Therapeutic Interventions grade I-II joint mobilizations only d/t osteoporosis no modalities d/t hx of cancer Next Visit Focus/Plan Next Note Type Treatment Note Next Visit Plan Review all HEP and divide up what to do so he has something to do everyday (this PT cannot find exercises from previous PT) Progress thoracic mobility and standing intrascapular and shoulder strengthening exercises. Initiate FGA balance tasks in hallway and make a program: sliding middle fingernail along the hallway, forward walk head turns right and left , forward walk head movements up and down, forward walking eyes closed, backwards walking , tightrope walking--one rep of each for one set and perform 3 sets, once a day Plan of Care Dates Plan of Care Start Date 08/09/24 Plan of Care End Date 10/09/24 Electronically Signed by: Noris Reagan, PT 08/09/24 9550 If you are in agreement with this Plan of Care, please return a signed and dated copy. I have reviewed this Plan of Care and certify that the skilled therapy services above are required to meet the patient?s needs. Physician Signature Date Printed Name and Credentials Clinical Instructor Signature Printed Name and Credentials
--- NOTE | 2024-08-15 12:27 | PT.OTN ---
Current Diagnoses Stiffness of right shoulder, not elsewhere classified (08/15/24) Stiffness of other specified joint, not elsewhere classified (08/15/24) Other spondylosis, cervical region (08/15/24) Cervical disc disorder, unspecified, unspecified cervical region (08/15/24) Cervicalgia (08/15/24) Unsteadiness on feet (08/15/24) Other abnormalities of gait and mobility (08/15/24) Weakness (08/15/24) Physical Therapy Treatment Note PT-OP-A Visit Information Start: 07/03/24 16:16 Freq: Status: Active Protocol: Document 08/15/24 10:42 AB (Rec: 08/15/24 12:27 AB [id number]) Out-Patient Physical Therapy Visit Information Visit Information Visit Type Treatment Note Visit Note Pili is Visit Start Time 11:33 Visit Stop Time 12:17 Visit Number 12/05 Number of EXTENDED INSURANCE CLERK Visits 1 Evaluation Information Evaluation Date 07/04/24 Precautions Precautions Hx stroke c/ R side and speech affected, high blood pressure , osteoporosis, active prostate CA that pt reports has not met, taking blood thinner PT-OP-B Current Condition Start: 07/03/24 16:16 Freq: Status: Active Protocol: Document 07/04/24 13:02 NM (Rec: 07/04/24 14:03 NM [id number]) Current Condition History of Current Condition Onset Date summer/fall 2023 Current Complaints pain with rotation, challenging to drive tractor History of Current Condition Pt presents with cervical spine pain. Has been present since at least March 2024, but reports that pt has had pain since last on tractor in summer/fall. Pain is turning his head R. He had a stroke 2 years ago. Reports difficulty with speaking following his CVA. Pt has had imaging, revealing osteoarthritis. Pt reports that something feels like it goes out of joint when turning his head. Pt's helped provide pt history. 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 Pt reports that he does not have numbness/ tingling into his hands. He did fall 3 years ago, but broke his pelvis; landed on his back, life flighted to [facility]. Has osteoporosis. Denies any more recent falls. Reports that balance is poor. Pt currently has prostate cancer, has had for 14 years; currently on a hormone treatment. Treatment Goals Patient/Caregiver Goals improve looking to R for driving tractor, posture Current Functional Impairments (Reported) Functional Limitations- Other driving tractor or car PT-OP-C Subjective Start: 07/03/24 16:16 Freq: Status: Active Protocol: Document 08/15/24 10:42 AB (Rec: 08/15/24 12:27 AB [id number]) OP-PT Subjective Patient Comments Patient Comments Patient reports pain with turning head R persists, but has no pain ambulating into session without device. Patient also comments he does some times have L shoulder blade pain. Start of session reports clicking not pain with AROM CS rotation R. Patient reports he only has two Home exercises, with verbal cues to perform HEP exercises, patient begins demonstrating ex performed in clinic only, when given verbal cues for scap squeeze, patient shrugs. PT-OP-F Manual Assessment Start: 07/03/24 16:16 Freq: Status: Active Protocol: Document 07/04/24 13:02 NM (Rec: 07/04/24 14:03 NM [id number]) Manual Assessments Soft Tissue Assessment Soft Tissue Mobility Assessment increased tightness and restrictions of R sided paraspinals and periscapulars tightness and restriction of B pecs, R>L Joint Mobility Assessment Joint Mobility Assessment Hypomobility with lateral glides of cervical spine, hypomobility with PA mobility in supine audible crepitus and clunk with R rotation AROM, none with PROM especially with flexion empty end feel R scapula is more elevated, tipped, protracted; L retracted Other Manual Assessments Other Manual Assessments cranial nerves: I decreased ( unable to smell), II/III/IV/ intact, VII intact, XI intact , XII intact PT-OP-G Mobility & Gait Start: 07/03/24 16:16 Freq: Status: Active Protocol: Document 07/04/24 13:02 NM (Rec: 07/04/24 16:17 NM [id number]) OP Gait Assessment Gait Gait Assistance Required: Independent Distance (Feet) 150 Assistive Devices Assistive Device None Gait Deviations General Gait Pattern Antalgic,Flexed Trunk Comments Gait Comments Decreased trunk rotation, antalgic gait with slight limp , increased lateral translation, forward trunk flexed posture PT-OP-J Posture/Palpation/Skin Start: 07/03/24 16:16 Freq: Status: Active Protocol: Document 07/04/24 13:02 NM (Rec: 07/04/24 14:03 NM [id number]) Posture Evaluation Position Standing Head/C-Spine Posture Forward Head T-Spine Posture Increased Kyphosis Shoulder Posture (L) Rounded,(R) Rounded,(L) Forward,(R) Forward Scapula Posture (R) Protracted,(R) Retracted,( R) Elevated,(R) Winged,(R) Tipped Arm Posture (L) Internally Rotated,(R) Internally Rotated Pelvis Posture Anteriorly Tilted Weight Distribution Balanced Hip Posture (L) Externally Rotated,(R) Externally Rotated Palpation Assessment Location cervical spine Palpation Details tenderness along R side of spine, no tenderness along midline; upper cervical more limited than lower cervical spine tightness along R paraspinals. abnormal scapular positioning PT-OP-K Range of Motion Start: 07/03/24 16:16 Freq: Status: Active Protocol: Document 07/04/24 13:02 NM (Rec: 07/04/24 14:03 NM [id number]) Cervical Spine Range of Motion Cervical Spine Active Degrees Flexion 45 Extension 30 Rotation Left 55 Rotation Right 25 Lateral Flexion Left 20 Lateral Flexion Right 15 Comments pain with R LF, R rot decreased thoracic mobility Shoulder Goniometric Range of Motion Shoulder ROM Limitations Comments observable limitations on R side PT-OP-L Special Tests Start: 07/03/24 16:16 Freq: Status: Active Protocol: Document 07/19/24 13:13 NM (Rec: 07/19/24 13:13 NM [id number]) Special Tests Cervical Spine Special Tests Vertebral artery screen Test Results CN limited, no PN changes; no position test d/t hx of CVA Comments 133/84 mmHg, 73 bpm; WFL carotid/cardiac ausc/palp, nystagmus present PT-OP-M Strength Start: 07/03/24 16:16 Freq: Status: Active Protocol: Document 07/04/24 13:02 NM (Rec: 07/04/24 14:03 NM [id number]) Cervical Spine Strength Cervical Spine Manual Muscle Testing Flexion (C1-2) 3+ Fair+ Extension 3+ Fair+ Rotation Left 3+ Fair+ Rotation Right 3+ Fair+ Lateral Flexion Left (C3) 3+ Fair+ Lateral Flexion Right (C3) 3+ Fair+ Comments no pain with resisted testing Shoulder Strength Shoulder Manual Muscle Testing Right Flexion 4- Good- Extension 4- Good- Abduction (C5) 4- Good- Adduction 4- Good- Left Flexion 4- Good- Extension 4- Good- External Rotation 4- Good- Internal Rotation 4- Good- Elbow/Forearm Strength Elbow and Forearm Manual Muscle Testing Right Flexion (C6) 4- Good- Extension (C7) 4- Good- Left Flexion (C6) 4- Good- Extension (C7) 4- Good- Wrist Strength Wrist Manual Muscle Testing Right Flexion (C7) 4- Good- Extension (C6) 4- Good- Left Flexion (C7) 4- Good- Extension (C6) 4- Good- PT-OP-Q Treatments Start: 07/03/24 16:16 Freq: Status: Active Protocol: Document 08/15/24 10:42 AB (Rec: 08/15/24 12:27 AB [id number]) Therapeutic Exercises Supine Exercises CS rotation Supine Exercise Name on occ float Side bilateral Reps/Minutes 2 min Comments vc to perform slowly in pain free range overhead flexion Supine Exercise Name lat stretch Side bilateral Equipment Used dowel c/ 2# wt for overpressure at end range Reps/Minutes 10x snow rebecca Supine Exercise Name HEP Side bilateral Reps/Minutes 15 Comments verbal cues for set up, UE position, direction of movement pec stretch Supine Exercise Name 1. T, 2. hands behind head, 3. arms slighty above head Side bilateral Equipment Used pillow under head Reps/Minutes 40-60 ea Comments post manual, verbal, visual and tactile cues Prone Exercises CS rotation in counter plank position. Side bilateral Reps/Minutes X8 Comments verbal and visual cues ( cues to perform slowly in pain free range Sitting Exercises UT stretch Sitting Exercise Name holding chair seat Side bilateral Reps/Minutes 40 sec each side X2 Comments verbal and visual cues scapular retraction Sitting Exercise Name HEP Side bilateral Resistance AROM Equipment Used pillow on lap Reps/Minutes 15 Comments verbal, visual and tactile cues, HEP review. Standing Exercises wall posture Standing Exercise Name 1. posture Equipment Used folded towel behind head Reps/Minutes Verbal cues for very gentle chin tuck, 10% scap squeeze, then hold the pos* Comments *when stepping away from wall C 2 Therapeutic Activity Therapeutic Activity supine to sit Comments focus on keeping head on pillow when turning to roll. X L and R X 1 Manual Therapy Treatment Consent Patient gave verbal consent for manual Yes treatment Soft Tissue Mobilization cervical spine Body Location LS, traps, scalenes at clavicle, int vert tissue, CS paraspinals Mobilization Type Rolling,Sustained Pressure Intensity/Depth Superficial Body Position Seated Comments pillow under UEs to moderate PT-OP-T Assessment and Plan Start: 07/03/24 16:16 Freq: Status: Active Protocol: Document 08/15/24 10:42 AB (Rec: 08/15/24 12:27 AB [id number]) Physical Therapy Assessment Goals 5 Impairment Evidence of imbalance Senior Living Goal (LTG) Pt will perform FGA WNLs to decrease fall risk. 08/09/24: FGA score is 12/30, indicating increased risk for falling LTG Duration 8 weeks 4 Impairment Decreased I and performance of HEP everyday Senior Living Goal (LTG) Pt will demonstrate HEP with cues only and will report performing at least some exercises from program everyday. LTG Duration 8 weeks Three Impairment postural restrictions, osteoporosis limiting trunk/ neck ROM Short Term Goal (STG) Pt will be educated on body mechanics and safety during exercise due to osteoporosis 08/09/24: Pt reports that he is working on his posture with some of his exercises including chin tuck. STG Duration 08/04/24 Senior Living Goal (LTG) Pt will improve tragus-wall measurement by at least 2 cm in order to demos improved spinal posture to offload cervical spine 08/09/24: Left tragus 13 cm from wall and left occiput protruberance 7.5 cm from wall . LTG Duration 10/09/24 Assessment Summary Assessment AROM CS rotation continues to be R<L end of session, but patient reports no clicking sensation end of session. Reviewed the 2 HEP exercises patient reports performing at home ( scap squeeze and supine snow angels ) Pt continues to require verba and tactile cues for HEP exercises. Physical Therapy Plan Frequency and Duration Frequency of Treatment 1x/Week Duration of treatment (weeks) 8 Plan of Care Start Date 08/09/24 Plan of Care End Date 10/09/24 Next Visit Focus/Plan Next Note Type Treatment Note Next Visit Plan Review all HEP and divide up what to do so he has something to do everyday (this PT cannot find exercises from previous PT) Progress thoracic mobility and standing intrascapular and shoulder strengthening exercises. Initiate FGA balance tasks in hallway and make a program: sliding middle fingernail along the hallway, forward walk head turns right and left , forward walk head movements up and down, forward walking eyes closed, backwards walking , tightrope walking--one rep of each for one set and perform 3 sets, once a day
--- NOTE | 2024-08-24 17:16 | PT.OTN ---
Current Diagnoses Stiffness of right shoulder, not elsewhere classified (08/24/24) Stiffness of other specified joint, not elsewhere classified (08/24/24) Other spondylosis, cervical region (08/24/24) Cervical disc disorder, unspecified, unspecified cervical region (08/24/24) Cervicalgia (08/24/24) Unsteadiness on feet (08/24/24) Other abnormalities of gait and mobility (08/24/24) Weakness (08/24/24) Physical Therapy Treatment Note PT-OP-A Visit Information Start: 07/03/24 16:16 Freq: Status: Active Protocol: Document 08/24/24 13:46 AB (Rec: 08/24/24 17:15 AB [id number]) Out-Patient Physical Therapy Visit Information Visit Information Visit Type Treatment Note Visit Note Pili is Visit Start Time 13:47 Visit Stop Time 14:34 Visit Number 01/05 Number of CIVIL ENGINEERING DESIGNER Visits 2 Evaluation Information Evaluation Date 07/04/24 Precautions Precautions Hx stroke c/ R side and speech affected, high blood pressure , osteoporosis, active prostate CA that pt reports has not met, taking blood thinner PT-OP-B Current Condition Start: 07/03/24 16:16 Freq: Status: Active Protocol: Document 07/04/24 13:02 NM (Rec: 07/04/24 14:03 NM [id number]) Current Condition History of Current Condition Onset Date summer/fall 2023 Current Complaints pain with rotation, challenging to drive tractor History of Current Condition Pt presents with cervical spine pain. Has been present since at least March 2024, but reports that pt has had pain since last on tractor in summer/fall. Pain is turning his head R. He had a stroke 2 years ago. Reports difficulty with speaking following his CVA. Pt has had imaging, revealing osteoarthritis. Pt reports that something feels like it goes out of joint when turning his head. Pt's helped provide pt history. 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 Pt reports that he does not have numbness/ tingling into his hands. He did fall 3 years ago, but broke his pelvis; landed on his back, [facility] Has osteoporosis. Denies any more recent falls. Reports that balance is poor. Pt currently has prostate cancer, has had for 14 years; currently on a hormone treatment. Treatment Goals Patient/Caregiver Goals improve looking to R for driving tractor, posture Current Functional Impairments (Reported) Functional Limitations- Other driving tractor or car PT-OP-C Subjective Start: 07/03/24 16:16 Freq: Status: Active Protocol: Document 08/24/24 13:46 AB (Rec: 08/24/24 17:15 AB [id number]) OP-PT Subjective Patient Comments Patient Comments Patient reports he can rotate the neck pretty good without hurting. Patient reports he has been working on the poor posture thing. PT-OP-F Manual Assessment Start: 07/03/24 16:16 Freq: Status: Active Protocol: Document 07/04/24 13:02 NM (Rec: 07/04/24 14:03 NM [id number]) Manual Assessments Soft Tissue Assessment Soft Tissue Mobility Assessment increased tightness and restrictions of R sided paraspinals and periscapulars tightness and restriction of B pecs, R>L Joint Mobility Assessment Joint Mobility Assessment Hypomobility with lateral glides of cervical spine, hypomobility with PA mobility in supine audible crepitus and clunk with R rotation AROM, none with PROM especially with flexion empty end feel R scapula is more elevated, tipped, protracted; L retracted Other Manual Assessments Other Manual Assessments cranial nerves: I decreased ( unable to smell), II/III/IV/ intact, VII intact, XI intact , XII intact PT-OP-G Mobility & Gait Start: 07/03/24 16:16 Freq: Status: Active Protocol: Document 07/04/24 13:02 NM (Rec: 07/04/24 16:17 NM [id number]) OP Gait Assessment Gait Gait Assistance Required: Independent Distance (Feet) 150 Assistive Devices Assistive Device None Gait Deviations General Gait Pattern Antalgic,Flexed Trunk Comments Gait Comments Decreased trunk rotation, antalgic gait with slight limp , increased lateral translation, forward trunk flexed posture PT-OP-J Posture/Palpation/Skin Start: 07/03/24 16:16 Freq: Status: Active Protocol: Document 07/04/24 13:02 NM (Rec: 07/04/24 14:03 NM [id number]) Posture Evaluation Position Standing Head/C-Spine Posture Forward Head T-Spine Posture Increased Kyphosis Shoulder Posture (L) Rounded,(R) Rounded,(L) Forward,(R) Forward Scapula Posture (R) Protracted,(R) Retracted,( R) Elevated,(R) Winged,(R) Tipped Arm Posture (L) Internally Rotated,(R) Internally Rotated Pelvis Posture Anteriorly Tilted Weight Distribution Balanced Hip Posture (L) Externally Rotated,(R) Externally Rotated Palpation Assessment Location cervical spine Palpation Details tenderness along R side of spine, no tenderness along midline; upper cervical more limited than lower cervical spine tightness along R paraspinals. abnormal scapular positioning PT-OP-K Range of Motion Start: 07/03/24 16:16 Freq: Status: Active Protocol: Document 07/04/24 13:02 NM (Rec: 07/04/24 14:03 NM [id number]) Cervical Spine Range of Motion Cervical Spine Active Degrees Flexion 45 Extension 30 Rotation Left 55 Rotation Right 25 Lateral Flexion Left 20 Lateral Flexion Right 15 Comments pain with R LF, R rot decreased thoracic mobility Shoulder Goniometric Range of Motion Shoulder ROM Limitations Comments observable limitations on R side PT-OP-L Special Tests Start: 07/03/24 16:16 Freq: Status: Active Protocol: Document 07/19/24 13:13 NM (Rec: 07/19/24 13:13 NM [id number]) Special Tests Cervical Spine Special Tests Vertebral artery screen Test Results CN limited, no PN changes; no position test d/t hx of CVA Comments 133/84 mmHg, 73 bpm; WFL carotid/cardiac ausc/palp, nystagmus present PT-OP-M Strength Start: 07/03/24 16:16 Freq: Status: Active Protocol: Document 07/04/24 13:02 NM (Rec: 07/04/24 14:03 NM [id number]) Cervical Spine Strength Cervical Spine Manual Muscle Testing Flexion (C1-2) 3+ Fair+ Extension 3+ Fair+ Rotation Left 3+ Fair+ Rotation Right 3+ Fair+ Lateral Flexion Left (C3) 3+ Fair+ Lateral Flexion Right (C3) 3+ Fair+ Comments no pain with resisted testing Shoulder Strength Shoulder Manual Muscle Testing Right Flexion 4- Good- Extension 4- Good- Abduction (C5) 4- Good- Adduction 4- Good- Left Flexion 4- Good- Extension 4- Good- External Rotation 4- Good- Internal Rotation 4- Good- Elbow/Forearm Strength Elbow and Forearm Manual Muscle Testing Right Flexion (C6) 4- Good- Extension (C7) 4- Good- Left Flexion (C6) 4- Good- Extension (C7) 4- Good- Wrist Strength Wrist Manual Muscle Testing Right Flexion (C7) 4- Good- Extension (C6) 4- Good- Left Flexion (C7) 4- Good- Extension (C6) 4- Good- PT-OP-Q Treatments Start: 07/03/24 16:16 Freq: Status: Active Protocol: Document 08/24/24 13:46 AB (Rec: 08/24/24 17:15 AB [id number]) Therapeutic Exercises Supine Exercises CS rotation Supine Exercise Name on occ float Side bilateral Reps/Minutes 2 min Comments vc to perform slowly in pain free range snow rebecca Supine Exercise Name HEP Side bilateral Equipment Used Review/ new copy for HEP Reps/Minutes 15 Comments verbal cues for set up, UE position, direction of movement cervical retraction Supine Exercise Name HEP review Reps/Minutes X10 Comments verbal and tactile cues Sitting Exercises thoracic mobility Sitting Exercise Name pillow behind back: 1. TS ext, 2. TS rot via 1/2 open book Side bilateral Equipment Used std chair, arms across chest Reps/Minutes X10 each Comments verbal and visual cues Standing Exercises periscapular Standing Exercise Name trialed in session - 1. low row, 2. row Side bilateral Resistance level 2 band Reps/Minutes 12 ea Comments VC for one foot forward, monitored for pain Neuro Re-Education Treatment Balance Activities FGA Details CGA for all but nail on wall, occ min assist with tandem Surface inc diffic with tandem positioning Reps/Duration X3 for each 54 fet length of all Comments 1. ambulation with fingernail on wall HEP for fingernail on wall only. 2. ambulation with head turns 3. ambulation with head up and down 4. amb with eyes closed 5.backwards walking, 6. tightrope walking PT-OP-T Assessment and Plan Start: 07/03/24 16:16 Freq: Status: Active Protocol: Document 08/24/24 13:46 AB (Rec: 08/24/24 17:15 AB [id number]) Physical Therapy Assessment Goals 5 Impairment Evidence of imbalance Residential Goal (LTG) Pt will perform FGA WNLs to decrease fall risk. 08/09/24: FGA score is 12/30, indicating increased risk for falling LTG Duration 8 weeks 4 Impairment Decreased I and performance of HEP everyday Residential Goal (LTG) Pt will demonstrate HEP with cues only and will report performing at least some exercises from program everyday. LTG Duration 8 weeks Three Impairment postural restrictions, osteoporosis limiting trunk/ neck ROM Short Term Goal (STG) Pt will be educated on body mechanics and safety during exercise due to osteoporosis 08/09/24: Pt reports that he is working on his posture with some of his exercises including chin tuck. STG Duration 08/04/24 Trailer Chief Goal (LTG) Pt will improve tragus-wall measurement by at least 2 cm in order to demos improved spinal posture to offload cervical spine 08/09/24: Left tragus 13 cm from wall and left occiput protruberance 7.5 cm from wall . LTG Duration 10/09/24 Assessment Summary Assessment Increased velocity on 3rd round of FGA exercises, and increased min assist required with 3rd round of tandem stepping. Emmanuel reports having no pain end of session. Physical Therapy Plan Frequency and Duration Frequency of Treatment 1x/Week Duration of treatment (weeks) 8 Plan of Care Start Date 08/09/24 Plan of Care End Date 10/09/24 Therapeutic Interventions Therapeutic Interventions Canalithic Repositioning, Coordination Training,Gait Training,Home Exercise Program ,Joint Mobilizations,Manual Therapy,Neuromuscular Re- education,Orthotic/Prosthetic Management,Patient/Caregiver Education,Self-Care/Home Management,Sensory Integration ,Soft Tissue Mobilization, Taping,Therapeutic Activities, Therapeutic Exercises, Vestibular Rehabilitation Other Therapeutic Interventions grade I-II joint mobilizations only d/t osteoporosis no modalities d/t hx of cancer Next Visit Focus/Plan Next Note Type Treatment Note Next Visit Plan Progress thoracic mobility and standing intrascapular and shoulder strengthening exercises. Continue FGA balance tasks in hallway and make a program:( sliding middle fingernail along the hallway added to HEP ), continue in clinic and add gradually to HEP as kwame/able forward walk head turns right and left, forward walk head movements up and down, forward walking eyes closed, backwards walking, tightrope walking--one rep of each for one set and perform 3 sets, once a day
--- NOTE | 2024-09-06 14:11 | PT.OTN ---
Current Diagnoses Stiffness of right shoulder, not elsewhere classified (09/06/24) Stiffness of other specified joint, not elsewhere classified (09/06/24) Other spondylosis, cervical region (09/06/24) Cervical disc disorder, unspecified, unspecified cervical region (09/06/24) Cervicalgia (09/06/24) Unsteadiness on feet (09/06/24) Other abnormalities of gait and mobility (09/06/24) Weakness (09/06/24) Physical Therapy Treatment Note PT-OP-A Visit Information Start: 07/03/24 16:16 Freq: Status: Active Protocol: Document 09/06/24 13:38 MB (Rec: 09/06/24 14:11 MB Desktop) Out-Patient Physical Therapy Visit Information Visit Information Visit Type Treatment Note Visit Note Pili is Visit Start Time 13:38 Visit Stop Time 14:18 Visit Number 9 Number of INFORMATION SYSTEMS AUDITOR Visits 0 Evaluation Information Evaluation Date 07/04/24 Precautions Precautions Hx stroke c/ R side and speech affected, high blood pressure , osteoporosis, active prostate CA that pt reports has not met, taking blood thinner PT-OP-B Current Condition Start: 07/03/24 16:16 Freq: Status: Active Protocol: Document 07/04/24 13:02 NM (Rec: 07/04/24 14:03 NM [id number]) Current Condition History of Current Condition Onset Date summer/fall 2023 Current Complaints pain with rotation, challenging to drive tractor History of Current Condition Pt presents with cervical spine pain. Has been present since at least March 2024, but reports that pt has had pain since last on tractor in summer/fall. Pain is turning his head R. He had a stroke 2 years ago. Reports difficulty with speaking following his CVA. Pt has had imaging, revealing osteoarthritis. Pt reports that something feels like it goes out of joint when turning his head. Pt's helped provide pt history. 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 Pt reports that he does not have numbness/ tingling into his hands. He did fall 3 years ago, but broke his pelvis; landed on his back, life flighted to [facility]. Has osteoporosis. Denies any more recent falls. Reports that balance is poor. Pt currently has prostate cancer, has had for 14 years; currently on a hormone treatment. Treatment Goals Patient/Caregiver Goals improve looking to R for driving tractor, posture Current Functional Impairments (Reported) Functional Limitations- Other driving tractor or car PT-OP-C Subjective Start: 07/03/24 16:16 Freq: Status: Active Protocol: Document 09/06/24 13:38 MB (Rec: 09/06/24 14:11 MB Desktop) OP-PT Subjective Patient Comments Patient Comments Neck is feeling better. When asked about how his exercises are going, he states there are a lot of other things going on such as fixing things, the garden, the tractor. He watches YouTube and he is sleeping well and he is taking two naps a day. PT-OP-F Manual Assessment Start: 07/03/24 16:16 Freq: Status: Active Protocol: Document 07/04/24 13:02 NM (Rec: 07/04/24 14:03 NM [id number]) Manual Assessments Soft Tissue Assessment Soft Tissue Mobility Assessment increased tightness and restrictions of R sided paraspinals and periscapulars tightness and restriction of B pecs, R>L Joint Mobility Assessment Joint Mobility Assessment Hypomobility with lateral glides of cervical spine, hypomobility with PA mobility in supine audible crepitus and clunk with R rotation AROM, none with PROM especially with flexion empty end feel R scapula is more elevated, tipped, protracted; L retracted Other Manual Assessments Other Manual Assessments cranial nerves: I decreased ( unable to smell), II/III/IV/ intact, VII intact, XI intact , XII intact PT-OP-G Mobility & Gait Start: 07/03/24 16:16 Freq: Status: Active Protocol: Document 07/04/24 13:02 NM (Rec: 07/04/24 16:17 NM [id number]) OP Gait Assessment Gait Gait Assistance Required: Independent Distance (Feet) 150 Assistive Devices Assistive Device None Gait Deviations General Gait Pattern Antalgic,Flexed Trunk Comments Gait Comments Decreased trunk rotation, antalgic gait with slight limp , increased lateral translation, forward trunk flexed posture PT-OP-J Posture/Palpation/Skin Start: 07/03/24 16:16 Freq: Status: Active Protocol: Document 07/04/24 13:02 NM (Rec: 07/04/24 14:03 NM [id number]) Posture Evaluation Position Standing Head/C-Spine Posture Forward Head T-Spine Posture Increased Kyphosis Shoulder Posture (L) Rounded,(R) Rounded,(L) Forward,(R) Forward Scapula Posture (R) Protracted,(R) Retracted,( R) Elevated,(R) Winged,(R) Tipped Arm Posture (L) Internally Rotated,(R) Internally Rotated Pelvis Posture Anteriorly Tilted Weight Distribution Balanced Hip Posture (L) Externally Rotated,(R) Externally Rotated Palpation Assessment Location cervical spine Palpation Details tenderness along R side of spine, no tenderness along midline; upper cervical more limited than lower cervical spine tightness along R paraspinals. abnormal scapular positioning PT-OP-K Range of Motion Start: 07/03/24 16:16 Freq: Status: Active Protocol: Document 07/04/24 13:02 NM (Rec: 07/04/24 14:03 NM [id number]) Cervical Spine Range of Motion Cervical Spine Active Degrees Flexion 45 Extension 30 Rotation Left 55 Rotation Right 25 Lateral Flexion Left 20 Lateral Flexion Right 15 Comments pain with R LF, R rot decreased thoracic mobility Shoulder Goniometric Range of Motion Shoulder ROM Limitations Comments observable limitations on R side PT-OP-L Special Tests Start: 07/03/24 16:16 Freq: Status: Active Protocol: Document 07/19/24 13:13 NM (Rec: 07/19/24 13:13 NM [id number]) Special Tests Cervical Spine Special Tests Vertebral artery screen Test Results CN limited, no PN changes; no position test d/t hx of CVA Comments 133/84 mmHg, 73 bpm; WFL carotid/cardiac ausc/palp, nystagmus present PT-OP-M Strength Start: 07/03/24 16:16 Freq: Status: Active Protocol: Document 07/04/24 13:02 NM (Rec: 07/04/24 14:03 NM [id number]) Cervical Spine Strength Cervical Spine Manual Muscle Testing Flexion (C1-2) 3+ Fair+ Extension 3+ Fair+ Rotation Left 3+ Fair+ Rotation Right 3+ Fair+ Lateral Flexion Left (C3) 3+ Fair+ Lateral Flexion Right (C3) 3+ Fair+ Comments no pain with resisted testing Shoulder Strength Shoulder Manual Muscle Testing Right Flexion 4- Good- Extension 4- Good- Abduction (C5) 4- Good- Adduction 4- Good- Left Flexion 4- Good- Extension 4- Good- External Rotation 4- Good- Internal Rotation 4- Good- Elbow/Forearm Strength Elbow and Forearm Manual Muscle Testing Right Flexion (C6) 4- Good- Extension (C7) 4- Good- Left Flexion (C6) 4- Good- Extension (C7) 4- Good- Wrist Strength Wrist Manual Muscle Testing Right Flexion (C7) 4- Good- Extension (C6) 4- Good- Left Flexion (C7) 4- Good- Extension (C6) 4- Good- PT-OP-Q Treatments Start: 07/03/24 16:16 Freq: Status: Active Protocol: Document 09/06/24 13:38 MB (Rec: 09/06/24 14:11 MB Desktop) Therapeutic Exercises Supine Exercises overhead flexion Comments Pt demonstrates in sitting today snow rebecca Comments Pt demonstrates in sitting today cervical retraction Comments Pt demonstrates in sitting today Manual Therapy Treatment Consent Patient gave verbal consent for manual Yes treatment Other Other Manual Treatments Pt supine with head and legs supported: STM B pects with more tension on the right, B first rib mobs grade II-III and more tension on the right, B SCM STM, suboccipital release, PA mobs cervical spine grade II-III, positional release ribs, STM B infraspinatus Neuro Re-Education Treatment Balance Activities FGA Comments Given that pt con't to require CGA to min A for exercises, will not prescribe for home PT-OP-T Assessment and Plan Start: 07/03/24 16:16 Freq: Status: Active Protocol: Document 09/06/24 13:38 MB (Rec: 09/06/24 14:11 MB Desktop) Physical Therapy Assessment Goals 5 Impairment Evidence of imbalance Cargo Worker Goal (LTG) Pt will perform FGA WNLs to decrease fall risk. 08/09/24: FGA score is 12/30, indicating increased risk for falling 09/06/24: Pt has con't to require CGA to min A for FGA tasks sliding fingernail on the wall and so did not progress safely enough for HEP LTG Duration No real change since progress note 4 Impairment Decreased I and performance of HEP everyday Half-Way Goal (LTG) Pt will demonstrate HEP with cues only and will report performing at least some exercises from program everyday. LTG Duration No change since progress note Three Impairment postural restrictions, osteoporosis limiting trunk/ neck ROM Short Term Goal (STG) Pt will be educated on body mechanics and safety during exercise due to osteoporosis 08/09/24: Pt reports that he is working on his posture with some of his exercises including chin tuck. 09/06/24: PT reports that he con't to work on posture as he can. STG Duration 08/04/24 Half-Way Goal (LTG) Pt will improve tragus-wall measurement by at least 2 cm in order to demos improved spinal posture to offload cervical spine 08/09/24: Left tragus 13 cm from wall and left occiput protruberance 7.5 cm from wall . 09/06/24: Left tragus is 13 cm from the wall LTG Duration No change since progress note Assessment Summary Assessment Pt has not been able to be too compliant with HEP at home and is not available for treatment today. He prefers to work on chores and fixing things. Re-ed pt to con't with exercises at home even though he gets side tracked. Discussed walking with rollator or walking sticks and this does not seem like something he would like to do at home with . It is challenging to understand pt today d/t speech changes from stroke. Pt has had some car trouble that he has been working on and he tends to run out of time for exercises. Physical Therapy Plan Frequency and Duration Frequency of Treatment 1x/Week Duration of treatment (weeks) 8 Plan of Care Start Date 08/09/24 Plan of Care End Date 10/09/24 Therapeutic Interventions Therapeutic Interventions Canalithic Repositioning, Coordination Training,Gait Training,Home Exercise Program ,Joint Mobilizations,Manual Therapy,Neuromuscular Re- education,Orthotic/Prosthetic Management,Patient/Caregiver Education,Self-Care/Home Management,Sensory Integration ,Soft Tissue Mobilization, Taping,Therapeutic Activities, Therapeutic Exercises, Vestibular Rehabilitation Other Therapeutic Interventions grade I-II joint mobilizations only d/t osteoporosis no modalities d/t hx of cancer Next Visit Focus/Plan Next Note Type Discharge Summary
== END 2024-09-07 10:53 | disposition home or self-care (01) ==
LOC: PHYS 13:45
PROVIDERS: Family Provider Family Medicine; PCP Family Medicine; Referring Provider Family Medicine; Visit Provider Family Medicine
DX: M50.90 Cervical disc disorder, unspecified, unspecified cervical region (principal); M47.892 Other spondylosis, cervical region; R53.1 Weakness; M25.69 Stiffness of other specified joint, not elsewhere classified; M25.611 Stiffness of right shoulder, not elsewhere classified; R26.89 Other abnormalities of gait and mobility; R26.81 Unsteadiness on feet
CPT/HCPCS: 97110; 97112; 97140; 97161; 97162; 97535